=== PATIENT | female | born 1950 | race Caucasian/White ===

== ENCOUNTER 2017-04-19 19:57 | Outpatient (CLI) | payer MEDICARE | END 2017-04-19 19:58 | disposition critical access hospital (66) | LOC: EMS 19:57 | PROVIDERS: ATTEND Surgery | DX: R50.9 Fever, unspecified (principal); R11.0 Nausea | CPT/HCPCS: A0425; A0427 ==

== ENCOUNTER 2017-04-19 20:25 | Emergency (ER) | payer MEDICARE ==
[2017-04-19 20:32] VITALS: BP 136/67
[2017-04-19] MEDS ORDERED: SODIUM CHLORIDE 0.9% 1,000 ML IV ONE (20:41)
[2017-04-19] MEDS ORDERED: ACETAMINOPHEN 500 MG TABLET PO STA (20:41)
[2017-04-19] MEDS ORDERED: ONDANSETRON 4 MG/2 ML VIAL IVP STA (20:41)
[2017-04-19] MEDS ORDERED: ACETAMINOPHEN 500 MG TABLET PO ONE (20:52)
[2017-04-19] MEDS ORDERED: ONDANSETRON 4 MG/2 ML VIAL ONE (20:54)
[2017-04-19 21:14] LABS: BASOPHILS # (AUTO) 0.1 10^3/uL (0.0-0.1); BASOPHILS % (AUTO) 0.4 %; EOSINOPHILS # (AUTO) 0.1 10^3/uL (0.0-0.7); EOSINOPHILS % (AUTO) 0.5 %; HCT - HEMATOCRIT 43.5 % (37.0-47.0); HGB - HEMOGLOBIN 15.2 g/dL (12.0-16.0); LYMPHOCYTES # (AUTO) 0.5 10^3/uL (1.5-3.5); LYMPHOCYTES % (AUTO) 3.6 %; MEAN CORPUSCULAR HEMOGLOBIN 33.9 pg (27.0-31.0); MONOCYTES # (AUTO) 0.8 10^3/uL (0.0-1.0); MONOCYTES % (AUTO) 5.1 %; NEUTROPHILS # (AUTO) 13.5 10^3/uL (1.5-6.6); NEUTROPHILS % (AUTO) 90.4 %; RED BLOOD COUNT 4.49 10^6/uL (4.20-5.40); RED CELL DISTRIBUTION WIDTH 13.8 % (12.0-15.0); UNCORRECTED WHITE BLOOD COUNT 14.9 x10^3/uL; WHITE BLOOD COUNT 14.9 x10^3/uL (4.8-10.8)
[2017-04-19 21:27] LABS: ALBUMIN/GLOBULIN RATIO 1.3 (1.0-2.2); BILIRUBIN,TOTAL 1.1 mg/dL (0.2-1.0); CREATININE 0.7 mg/dL (0.4-1.0); MAGNESIUM 1.7 mg/dL (1.7-2.8); TOTAL PROTEIN 6.6 g/dL (6.7-8.2)
[2017-04-19] MEDS ORDERED: KETOROLAC 60 MG/2 ML VIAL IVP STA (21:27)
[2017-04-19] MEDS ORDERED: NEUTRA-PHOS 250 MG TABLET PO STA (21:29)
[2017-04-19] MEDS ORDERED: KETOROLAC 15 MG/ML VIAL ONE (21:42)
[2017-04-19] MEDS ORDERED: METOCLOPRAMIDE 10 MG/2 ML VIAL IVP STA (21:51)
[2017-04-19] MEDS ORDERED: METOCLOPRAMIDE 10 MG/2 ML VIAL ONE (22:00)
[2017-04-19 22:02] LABS: BILIRUBIN,URINE NEGATIVE (NEGATIVE)
[2017-04-19 22:03] LABS: UA w/ MICROSCOPIC CHARGE YES
--- NOTE | 2017-04-19 22:05 | ED Physician Documentation ---
History of Present Illness - Stated complaint Stated Complaint: FEVER/CHILLS - Chief complaint Chief Complaint: Fever - History obtained from History obtained from: Patient, Family, EMS - History of Present Illness Timing: Today - Additonal information Additional information: Patient is a 66 year old female with multiple co-morbidities who is presenting to the emergency department for body aches. Patient states that yesterday she was out in the sun all day yesterday and today when she woke up she had body aches and felt nauseated and febrile. Patient states that this happened to her once before Review of Systems Constitutional: reports: Fever, Myalgias Eyes: denies: Decreased vision, Photophobia Ears: denies: Ear pain, Drainage/discharge Nose: denies: Congestion Throat: denies: Sore throat Cardiac: denies: Chest pain / pressure, Palpitations Respiratory: denies: Cough, Wheezing GI: reports: Nausea, Vomiting. 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 HEENT: Tonsil/Adenoidectomy - Present Medications Home Medications: Ambulatory Orders Medication Instructions Recorded Confirmed Acyclovir [Zovirax] 04/19/17 Hydrochlorothiazide 04/19/17 Losartan [Cozaar] 04/19/17 Metoprolol Succinate/Hctz 1 tab PO DAILY 04/19/17 04/19/17 [Metoprolol ER-Hctz 50-12.5 mg] Ondansetron Odt [Zofran] 4 mg TL Q6H PRN #14 tablet 04/19/17 - Allergies Allergies/Adverse Reactions: Allergies Allergy/AdvReac Type Severity Reaction Status Date / Time Penicillins Allergy Hives Verified 04/19/17 20:33 Sulfa (Sulfonamide Allergy Emesis Verified 04/19/17 20:33 Antibiotics) morphine AdvReac Anxiety Verified 04/19/17 20:33 - Social History Does the pt smoke?: No Smoking Status: Never smoker Does the pt drink ETOH?: Yes ETOH Use: Wine Does the pt have substance abuse?: No - Immunizations Immunizations are current?: Yes - POLST Patient has POLST: No PD ED PE NORMAL - Vitals Vital signs reviewed: Yes - General General: Alert and oriented X 3, Well developed/nourished - HEENT HEENT: Atraumatic, PERRL, Pharynx benign, Dentition benign - Neck Neck: Supple, no meningeal sign, No JVD - Cardiac Cardiac: RRR, No murmur - Respiratory Respiratory: No respiratory distress - Abdomen Abdomen: Soft, Non tender, Non distended - Derm Derm: Normal color, Warm and dry, No rash - Neuro Neuro: Alert and oriented X 3, 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, No motor deficit, No sensory deficit, Normal speech PD ED PE EXPANDED - HEENT HEENT: Atraumatic, PERRL, Dry mucous membranes - Cardiac Cardiac: Regular Rate, Normal pulses Results - Vitals Vitals: Vital Signs - 24 hr 04/19/17 20:27 Temperature 38.1 C H Heart Rate 104 H Respiratory 18 Rate Blood Pressure 136/67 H O2 Saturation 94 Oxygen O2 Source Room air - Labs Labs: Laboratory Tests 04/19/17 04/19/17 04/19/17 21:07 21:07 21:07 WBC 14.9 H RBC 4.49 Hgb 15.2 Hct 43.5 MCV 97.0 MCH 33.9 H MCHC 35.0 RDW 13.8 Plt Count 195 MPV 8.0 Neut # 13.5 H Lymph # 0.5 L [place] # 0.8 Eos # 0.1 Baso # 0.1 Absolute Nucleated RBC 0.01 Nucleated RBCs 0.0 Sodium 135 Potassium 3.0 L Chloride 99 L Carbon Dioxide 27 Anion Gap 9.0 BUN 16 Creatinine 0.7 Estimated GFR (MDRD) 83 L Glucose 150 H Calcium 9.0 Phosphorus 2.0 L Magnesium 1.7 Total Bilirubin 1.1 H AST 43 H ALT 35 Alkaline Phosphatase 55 Total Creatine Kinase 64 Total Protein 6.6 L Albumin 3.7 Globulin 2.9 Albumin/Globulin Ratio 1.3 Lipase 20 L TSH 1.34 Urine Color Urine Clarity Urine pH Ur Specific [place] Urine Protein Urine Glucose (UA) Urine Ketones Urine Occult Blood Urine Nitrite Urine Bilirubin Urine Urobilinogen Ur Leukocyte Esterase Urine RBC Urine WBC Ur Squamous Epith Cells Urine Bacteria Ur Microscopic Review Urine Culture Comments 04/19/17 21:15 WBC RBC Hgb Hct MCV MCH MCHC RDW Plt Count MPV Neut # Lymph # [place] # Eos # Baso # Absolute Nucleated RBC Nucleated RBCs Sodium Potassium Chloride Carbon Dioxide Anion Gap BUN Creatinine Estimated GFR (MDRD) Glucose Calcium Phosphorus Magnesium Total Bilirubin AST ALT Alkaline Phosphatase Total Creatine Kinase Total Protein Albumin Globulin Albumin/Globulin Ratio Lipase TSH Urine Color YELLOW Urine Clarity HAZY Urine pH 6.0 Ur Specific [place] 1.020 Urine Protein NEGATIVE Urine Glucose (UA) NEGATIVE Urine Ketones NEGATIVE Urine Occult Blood MODERATE H Urine Nitrite NEGATIVE Urine Bilirubin NEGATIVE Urine Urobilinogen 0.2 (NORMAL) Ur Leukocyte Esterase TRACE H Urine RBC 6-10 H Urine WBC 11-25 H Ur Squamous Epith Cells FEW Squamous Urine Bacteria Few Ur Microscopic Review INDICATED Urine Culture Comments INDICATED PD MEDICAL DECISION MAKING - ED course Complexity details: reviewed old records, reviewed results, re-evaluated patient , considered differential, d/w patient, d/w family ED course: Patient was seen and examined at bedside. IV access was gained and labs were drawn. Patient was treated with a NS bolus. Patient was offered tylenol but stated that it did not work for her. Patient was treated with toradol. Patient 's showed some electrolyte abnormalities and her potassium and phosphorus were repleated. Patient stated that she still felt nauseated and had a headache and was treated with reglan and morphine. Patient's other diagnostics were within normal limits. Patient had no other episodes of vomiting in the emergency department. Patient and stated that her symptoms had resolved and would like to go home. patient was discharged in stable condition. Departure - Departure Disposition: 01 Home, Self Care Clinical Impression: Heat exhaustion Condition: Good Instructions: ED Exhaustion Heat Follow-Up: primary,care provider [Other] Prescriptions: Ondansetron Odt [Zofran] 4 mg TL Q6H PRN #14 tablet PRN Reason: Nausea / Vomiting Comments: Your diagnostics today showed mild dehydration and electorlyte abnormalities. It is important that you stay well hydrated with gatorade or other electrolyte solutions. You should try to stay cool and avoid the heat if at all possible over the next few days. You should follow up with your pmd if your symptoms persist over the next week. you may return to the emergency department at any time for new, worsening or uncontrollable symptoms.
[2017-04-19] MEDS ORDERED: MORPHINE 10 MG/ML VIAL IVP STA (22:20)
[2017-04-19 22:21] LABS: UR CULTURE IF IND INDICATED
[2017-04-19] MEDS ORDERED: MORPHINE 10 MG/ML VIAL ONE (22:28)
== END 2017-04-19 23:09 | disposition home or self-care (01) ==
LOC: EDUNIT# → ED 20:25
DX: T67.5XXA Heat exhaustion, unspecified, initial encounter (principal); X32.XXXA Exposure to sunlight, initial encounter; E86.0 Dehydration; E87.8 Other disorders of electrolyte and fluid balance, not elsewhere classified; I10 Essential (primary) hypertension
CPT/HCPCS: 36415; 80053; 81001; 82550; 83690; 83735; 84100; 84443; 85025; 87086; 96374; 96375; 99283; 99284; A9270; 81003

== ENCOUNTER 2017-04-20 12:20 | Outpatient (CLI) | payer MEDICARE | END 2017-04-20 12:21 | disposition EMS.NT | LOC: EMS 12:20 | PROVIDERS: ATTEND Surgery | DX: M79.89 Other specified soft tissue disorders (principal); M79.661 Pain in right lower leg; R50.9 Fever, unspecified; R11.0 Nausea ==

== ENCOUNTER 2017-04-20 13:43 | Inpatient (IN) | payer MEDICARE ==
[2017-04-20] MEDS ORDERED: ACETAMINOPHEN 325 MG TABLET PO STA (14:56)
[2017-04-20] MEDS ORDERED: cefTRIAXone 2 GM in SODIUM CHLORIDE 0.9% MINIBAG 100 ML IV STA (14:56)
[2017-04-20] MEDS ORDERED: SODIUM CHLORIDE 0.9% 1,000 ML IV ONE ×2 (14:56→16:38)
[2017-04-20 15:04] LABS: BASOPHILS % (AUTO) 0.1 %; HCT - HEMATOCRIT 40.3 % (37.0-47.0); HGB - HEMOGLOBIN 14.2 g/dL (12.0-16.0); LYMPHOCYTES # (AUTO) 1.1 10^3/uL (1.5-3.5); LYMPHOCYTES % (AUTO) 6.1 %; MEAN CORPUSCULAR HEMOGLOBIN 33.5 pg (27.0-31.0); MEAN CORPUSCULAR HGB CONC 35.2 g/dL (32.0-36.0); MEAN CORPUSCULAR VOLUME 95.1 fL (81.0-99.0); MEAN PLATELET VOLUME 8.4 fL (7.9-10.8); MONOCYTES # (AUTO) 0.9 10^3/uL (0.0-1.0); MONOCYTES % (AUTO) 5.1 %; NEUTROPHILS # (AUTO) 15.7 10^3/uL (1.5-6.6); NEUTROPHILS % (AUTO) 88.7 %; RED BLOOD COUNT 4.24 10^6/uL (4.20-5.40); RED CELL DISTRIBUTION WIDTH 13.6 % (12.0-15.0); UNCORRECTED WHITE BLOOD COUNT 17.7 x10^3/uL; WHITE BLOOD COUNT 17.7 x10^3/uL (4.8-10.8)
[2017-04-20] MEDS ORDERED: ACETAMINOPHEN 325 MG TABLET PO ONE (15:12)
[2017-04-20 15:14] LABS: BILIRUBIN,TOTAL 1.4 mg/dL (0.2-1.0); CALCIUM 8.6 mg/dL (8.5-10.3); CREATININE 1.1 mg/dL (0.4-1.0); POTASSIUM 2.7 mmol/L (3.5-5.0); TOTAL PROTEIN 6.5 g/dL (6.7-8.2)
[2017-04-20 15:25] LABS: INR 1.4 (0.8-1.2); PT - PROTHROMBIN TIME 15.6 secs (9.9-12.6)
--- NOTE | 2017-04-20 15:45 | ED Physician Documentation ---
History of Present Illness - Stated complaint Stated Complaint: LEGS SWELLING - Chief complaint Chief Complaint: Ext Problem - History obtained from History obtained from: Patient, Family - Additonal information Additional information: This patient is a 66-year-old female who presents with the chief complaint of fevers, chills, generalized malaise, myalgias, and right lower extremity pain and swelling. The patient was seen here yesterday and diagnosed with heat exhaustion was also found to have a urinary tract infection. She was treated and fluid hydrated and ultimately was discharged to home. She returns today for similar but worse symptoms in addition she is complaining about right leg pain and swelling which is increasing in severity. She has no history of venous thromboembolism. She does have a history of kidney stones, sarcoid doses currently not being treated, PSVT, and hypertension. She denies any lower urinary symptoms at present. Review of systems: For pertinent positive and negatives in the review of systems please see the history of present illness, otherwise all other systems have been reviewed and are negative. Dragon disclaimer: Parts of this medical record were created using voice recognition technology. Because of the inherent limitations of this system, occasional same sounding word substitutions do occur and persist despite proofreading. Please read the document for context. 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 - Present Medications Home Medications: Ambulatory Orders Medication Instructions Recorded Confirmed Acyclovir [Zovirax] 04/19/17 Hydrochlorothiazide 04/19/17 Losartan [Cozaar] 04/19/17 Metoprolol Succinate/Hctz 1 tab PO DAILY 04/19/17 04/19/17 [Metoprolol ER-Hctz 50-12.5 mg] Ondansetron Odt [Zofran] 4 mg TL Q6H PRN #14 tablet 04/19/17 - Allergies Allergies/Adverse Reactions: Allergies Allergy/AdvReac Type Severity Reaction Status Date / Time Penicillins Allergy Hives Verified 04/20/17 13:53 Sulfa (Sulfonamide Allergy Emesis Verified 04/20/17 13:53 Antibiotics) morphine AdvReac Anxiety Verified 04/20/17 13:53 - Social History Does the pt smoke?: No Smoking Status: Never smoker Does the pt drink ETOH?: Yes Does the pt have substance abuse?: No - Immunizations Immunizations are current?: Yes - POLST Patient has POLST: No PD ED PE NORMAL - Vitals Vital signs reviewed: Yes - General General: Alert and oriented X 3, No acute distress, Well developed/nourished, Other (Well-appearing large habitus female lying in the bed. She is flushed and bright red in appearance and palpably warm to touch. She is alert and oriented does not seem altered or overtly toxic or ill.) - HEENT HEENT: Atraumatic, PERRL, Pharynx benign, Dentition benign - Neck Neck: Supple, no meningeal sign - Cardiac Cardiac: RRR, No murmur, No gallop, No rub - Respiratory Respiratory: No respiratory distress, Clear bilaterally - Abdomen Abdomen: Normal bowel sounds, Soft, Non tender, Non distended - Derm Derm: Other (Palpably warm to touch, bright red in appearance) - Extremities Extremities: No edema (Increase girth of the right lower extremity, increased warmth tenderness and redness of the right lower extremity below the knee. No obvious evidence of wound or sore. Good arterial pulses are present, capillary refill is great) Results - Vitals Vitals: Vital Signs - 24 hr 04/20/17 04/20/17 04/20/17 13:49 14:22 15:00 Temperature 36.6 C 37.5 C Heart Rate 76 68 Respiratory 14 20 Rate Blood Pressure 94/54 L 104/54 L O2 Saturation 100 94 04/20/17 04/20/17 04/20/17 15:30 16:19 17:00 Temperature 37.8 C H Heart Rate 70 70 62 Respiratory 18 18 18 Rate Blood Pressure 104/56 L 107/52 L 109/45 L O2 Saturation 93 04/20/17 04/20/17 04/20/17 17:20 17:25 17:45 Temperature Heart Rate 65 64 68 Respiratory 20 20 16 Rate Blood Pressure 87/50 L 95/49 L 106/55 L O2 Saturation 94 94 Oxygen O2 Source Room air - Labs Labs: Laboratory Tests 04/20/17 04/20/17 04/20/17 14:10 14:10 14:10 WBC 17.7 H RBC 4.24 Hgb 14.2 Hct 40.3 MCV 95.1 MCH 33.5 H MCHC 35.2 RDW 13.6 Plt Count 177 MPV 8.4 Neut # 15.7 H Lymph # 1.1 L [place] # 0.9 Eos # 0.0 Baso # 0.0 Absolute Nucleated RBC 0.00 Nucleated RBCs 0.0 PT 15.6 H INR 1.4 H Sodium 133 L Potassium 2.7 L Chloride 97 L Carbon Dioxide 25 Anion Gap 11.0 BUN 23 H Creatinine 1.1 H Estimated GFR (MDRD) 50 L Glucose 177 H Lactic Acid Calcium 8.6 Total Bilirubin 1.4 H AST 38 ALT 33 Alkaline Phosphatase 47 Total Protein 6.5 L Albumin 3.3 Globulin 3.2 Albumin/Globulin Ratio 1.0 Lipase 26 04/20/17 14:10 WBC RBC Hgb Hct MCV MCH MCHC RDW Plt Count MPV Neut # Lymph # [place] # Eos # Baso # Absolute Nucleated RBC Nucleated RBCs PT INR Sodium Potassium Chloride Carbon Dioxide Anion Gap BUN Creatinine Estimated GFR (MDRD) Glucose Lactic Acid 2.7 H Calcium Total Bilirubin AST ALT Alkaline Phosphatase Total Protein Albumin Globulin Albumin/Globulin Ratio Lipase PD MEDICAL DECISION MAKING - ED course Complexity details: reviewed old records, reviewed results, re-evaluated patient , d/w patient, 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 She was seen yesterday and diagnosed with heat exhaustion however symptoms worsened and the swelling and redness of the right leg really started up coming apparent today. On examination the patient was noted to be bright red in appearance, warm to touch, with a swollen red erythematous right leg. An IV line was started she is given IV fluid serum lactate was checked and found to be mildly elevated at 2.72. 2 blood cultures were obtained. Chest x-ray shows no acute intrathoracic disease. Blood work demonstrates a white count of 17,000 with elevation of the serum lactate at 2.7 consistent with evidence of endorgan dysfunction. Based on serious criteria and elevated lactate she meets criteria for severe sepsis. Ultrasound was done of the right lower extremity is negative for venous thromboembolism. Her urine yesterday was reviewed and it appears to be infected. I suspect her focals of infection is more likely due to her right lower extremity which is obviously infected. The portal of entry appears to be due to tinea pedis. Disposition: Admission Clinical impression: 1. Severe sepsis by criteria 2. Right lower extremity cellulitis 3. Possible mild urinary tract infection Departure - Departure Disposition: ED Place in Observation
[2017-04-20] MEDS ORDERED: HYDROmorphone 1 MG/ML SYRINGE IVP STA (15:47)
--- NOTE | 2017-04-20 15:55 | XRAY Preliminary Report ---
Exam: XR Chest 1 View IMPRESSION: Unremarkable chest for age, body size and inspiratory effort. No pneumonia or other demon strated cause for fever. [facility] SITE ID: [id number]
[2017-04-20] MEDS ORDERED: HYDROmorphone 1 MG/ML SYRINGE ONE (15:56)
[2017-04-20] MEDS ORDERED: SODIUM CHLORIDE FLUSH 0.9% 10 ML SYRINGE IVP ONE (15:57)
--- NOTE | 2017-04-20 15:57 | XRAY Report ---
EXAM: CHEST RADIOGRAPHY, PORTABLE ONE VIEW EXAM DATE: 04/20/2017 03:17 PM. CLINICAL HISTORY: 66-year-old female with fever. COMPARISON: Two-view chest 09/14/2012. TECHNIQUE: 1516 hrs. AP portable view. FINDINGS: Lungs/Pleura: Suboptimal inspiratory effort with minor hypoventilatory changes. No infiltrates. No pl eural effusion. No pneumothorax. Mediastinum: Heart size normal considering body size and inspiratory effort. No pulmonary vascular co ngestion or adenopathy. Other: Trachea is midline. Osseous structures are unremarkable. IMPRESSION: Unremarkable chest for age, body size and inspiratory effort. No pneumonia or other demon strated cause for fever. [facility] Referring Provider Line: [phone] SITE ID: [id number]
--- NOTE | 2017-04-20 16:02 | Ultrasound Preliminary Report ---
Exam: US Duplex Ext Veins Right IMPRESSION: No evidence for deep venous thrombosis. [facility] SITE ID: [id number]
--- NOTE | 2017-04-20 16:05 | Ultrasound Report ---
EXAM: RIGHT LOWER EXTREMITY VENOUS ULTRASOUND EXAM DATE: 04/20/2017 03:48 PM. CLINICAL HISTORY: RIGHT LEG PAIN AND SWELLING. COMPARISON: None. TECHNIQUE: Real-time sonographic vascular imaging was performed by the field sampling technician through the lower extremity utilizing both color-flow and Doppler spectral analysis. Multiple equal opportunity representative static baltazar ges were saved for review. FINDINGS: Common Femoral Vein (CFV): Limited visualization due to obesity. CFV-GSV Junction: Normal. Profunda Femoral Vein (PFV): Normal. Femoral Vein (FV) Prox: Normal. Femoral Vein (FV) Mid: Normal. Femoral Vein (FV) Dist: Normal. Popliteal Vein: Normal. Posterior Tibial Veins: Normal. Peroneal Veins: Normal. Contralateral Side CFV: Limited visualization due to obesity. Other: None. IMPRESSION: No evidence for deep venous thrombosis. [facility] Referring Provider Line: [phone] SITE ID: [id number]
[2017-04-20] MEDS ORDERED: cefTRIAXone 2 GM VIAL ONE (16:10)
[2017-04-20] MEDS ORDERED: CLINDAMYCIN 900 MG/50 ML 50 ML IV ONE ×2 (17:10→17:17)
[2017-04-20] MEDS ORDERED: oxyCODONE 5 MG TABLET PO PRN ×4 (17:55→18:40)
[2017-04-20] MEDS ORDERED: SODIUM CHLORIDE FLUSH 0.9% 10 ML SYRINGE IVP PRN ×2 (17:55→18:40)
[2017-04-20] MEDS ORDERED: VANCOMYCIN INJ 1 GM in SODIUM CHLORIDE 0.9% 250 ML IV STA ×2 (17:55→18:40)
[2017-04-20] MEDS ORDERED: ONDANSETRON 4 MG/2 ML VIAL IVP PRN ×2 (17:55→18:40)
[2017-04-20] MEDS ORDERED: CLINDAMYCIN 900 MG/50 ML 50 ML IV SCH (18:00)
[2017-04-20] MEDS ORDERED: NS W/20 MEQ KCL 1,000 ML IV SCH (18:00)
[2017-04-20 18:23] LABS: BILIRUBIN,URINE NEGATIVE (NEGATIVE)
[2017-04-20 18:25] LABS: UA w/ MICROSCOPIC CHARGE YES
[2017-04-20 18:55] LABS: WBC,URINE >25 /HPF (0-5)
[2017-04-20 18:56] LABS: UR CULTURE IF IND INDICATED
[2017-04-20] MEDS ORDERED: VANCOMYCIN PER PHARMACY 1 GM in SODIUM CHLORIDE 0.9% 250 ML IV SCH (19:00)
[2017-04-20] MEDS: NS W/20 MEQ KCL 1,000 ML IV SCH (19:10)
[2017-04-20] MEDS: POTASSIUM CHLORIDE 20 MEQ TABLET PO SCH ×2 (19:10→22:14)
[2017-04-20] MEDS ORDERED: WATER FOR INJECTION,STERILE 10 ML ONE (19:35)
[2017-04-20] MEDS ORDERED: VANCOMYCIN INJ 1.5 GM in SODIUM CHLORIDE 0.9% 500 ML IV SCH (20:00)
--- NOTE | 2017-04-20 20:36 | HISTORY & PHYSICAL EXAMINATION ---
DATE OF ADMISSION: 04/20/2017 PRIMARY CARE PHYSICIAN: Out of the area. CHIEF COMPLAINT: Fever and leg swelling. IDENTIFYING INFORMATION: The patient is a 66-year-old female, who appears cogent, consistent, and tho rough. Her is also present and gives additional information. There is also additional informa tion in the hand-off from Dr. Barba, the emergency department physician, and personal review of the past medical records, which are summarized subsequently. All of this, including her interview and examination, were used in the evaluation of this patient and the preparation of this document. HISTORY OF PRESENT ILLNESS: The patient was working outside for too long. She was feeling like she merchant s felt before when she had heat exhaustion about 20 years ago, but she also had other symptoms which she called neuralgia and pain in the extremities. She was seen in the emergency department last night , and she was given 2 L of oxygen. The patient also had a urinary tract infection and a culture which is pending, but there were no antibiotics prescribed. The patient had been ordered a white count at that time, which was 14.9. The patient returned today and had a fever at home to 103 by EMS. She had more symptoms, and the right leg was swollen and turned red. Very painful as well. REVIEW OF SYSTEMS: The patient has had a fever and pain. No sore throat. No cough. She has had no yoel st pain or palpitations. She has a past history of a racing heart, but she did not have this at this time. She has had no abdominal pain. She had nausea and vomiting, though. No frequency, urgency, or d ysuria. The rest of the complete review of systems are negative as queried. PAST MEDICAL HISTORY: Remarkable for hypertension, dysthymic disorder, sarcoidosis, and kidney stones . PAST SURGICAL HISTORY: , hysterectomy, T and A, and ventral hernia. The patient had an attem pt at ultrasonic destruction of kidney stones, but it did not work except to reduce the blockage obst ructing the urine flow in her kidney. ALLERGIES: 1. SULFA. 2. PENICILLIN. 3. MORPHINE. MEDICATIONS: 1. Zovirax. 2. Losartan. 3. Metoprolol/hydrochlorothiazide. 4. Ondansetron. Dosing and frequency are not verified. PERSONAL AND SOCIAL HISTORY: The patient was born in [place] and raised there. After high school, she went to [employer] in the first class at [employer] of this college within a colle ge. 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 The patient was never a smoker. She drinks alcohol socially. The patient is and lives with her . FAMILY HISTORY: Negative for diabetes. Negative for heart disease. Negative for cancer. PHYSICAL EXAMINATION: GENERAL: Well-developed, well-nourished female, morbidly obese. Appears uncomfortable, but in no acut e distress. VITAL SIGNS: Temperature 36.6, 76, 14, 94/54, saturation 100%. EYES: EOM within normal limits. PERRL. Nonicteric. MOUTH AND THROAT: Somewhat dry mucous membranes. Otherwise, no pathology of mouth or pharynx. NECK: No lymphadenopathy. No thyromegaly. CHEST WALL: Nontender. Symmetric. No breast exam done. HEART: Sinus rhythm. No murmurs, rubs, or clicks heard. LUNGS: Clear. Good air movement in all quadrants. ABDOMEN: Massively thick abdominal wall. Nontender. No further exam. PELVIC/RECTAL: Exam not done. EXTREMITIES: Shows a right leg which is swollen, tense, and tender up the calf. Ultrasound previously done today is negative for DVT. The patient's left leg has no redness, pain, or swelling. Pulse in t he posterior tibial bilaterally. SKIN: The erythematous rash is greatest around the ankle, with some on the upper calf. She says she h as tenderness all the way up into the inside of the thigh. NEUROLOGICAL: Cognitively intact. Cranial nerves intact. LABORATORY DATA: White count 17.7, up from 14.9 and 14.4. Platelets 177. INR is 1.4. Sodium 133, pota ssium 2.7. The patient's chloride is 97, CO2 25, BUN 23, and creatinine is 1.1. The patient's glucose is 177 and calcium 8.6. Normal liver enzymes, albumin is 3.3. The patient's lactic acid is 2.7. The patient's urine from today is pending. Her urinalysis is pending. The patient's urinalysis from showed the infected urine as noted above. SUMMARY: The patient is a 66-year-old female who said she worked out in the sun yesterday for too saji g. She got heat exhaustion and was diagnosed with the same and a urinary tract infection yesterday. S he did not get antibiotics. She got worse systemic symptoms. She has a past medical history of morbid obesity, intermittent tachycardia of undetermined type, possibly paroxysmal atrial fibrillation, and hypertension. She was seen in the emergency department today and found to have a urinary tract infec tion, cellulitis, and sepsis. She is admitted for antibiotics, as well as potassium replacement and I V fluids. DIAGNOSES: 1. Sepsis. 2. Cellulitis of right leg. 3. Urinary tract infection. 4. Hypokalemia. 5. Morbid obesity. 6. Hypertension. 7. Dysthymic disorder. DISCUSSION/DECISION-MAKING: The patient's assessment is documented by fever as documented by EMS, kristel vated lactate, and elevated white count from 2 sources of infection. 1. Sepsis. She will get Rocephin for the presumptive urinary tract infection and vancomycin IV for th e cellulitis. 2. Urinary tract infection. 3. Cellulitis. 4. The patient's hypokalemia will be treated with potassium replacement, IV and oral. The patient raleigh l have monitoring of this as well. 5. The patient's morbid obesity will not be addressed. 6. The patient's hypertension will be monitored. Presently, it is low, and no blood pressure medicine s will be administered. 7. There is no treatment needed for her dysthymic disorder at this time. HOSPITAL ISSUES: 1. CODE STATUS: FULL CODE. The patient was not engaged in a discussion given the urgency of the admis jose. 2. The patient's VTE prophylaxis will be with Lovenox subcu. Would suggest if she still has a painful leg despite antibiotics, repeat the ultrasound in 3 days. 3. Diet will be a regular diet. 4. Activity will be as tolerated. Assistance initially, given that she has sepsis and feels weak. 5. The patient's tubes and lines will be an IV peripherally only at this time. 6. Hospital status: Given the sepsis, UTI, and cellulitis, the patient will be admitted as an inpatie nt and will need at least 2 nights of treatment for that. The patient's length of stay is estimated a t 3 nights. 7. Disposition: Expected to be to home after she is improved. JOB #: [id number] EXT JOB #:[id number]
[2017-04-20] MEDS: SODIUM CHLORIDE FLUSH 0.9% 10 ML SYRINGE IVP SCH (21:17)
[2017-04-20] MEDS ORDERED: ZOLPIDEM 5 MG TABLET PO PRN (21:18)
[2017-04-20] MEDS ORDERED: SODIUM CHLORIDE FLUSH 0.9% 10 ML SYRINGE IVP SCH (22:00)
[2017-04-21] MEDS ORDERED: TEMAZEPAM 15 MG CAPSULE PO PRN (00:18)
[2017-04-21] MEDS: IBUPROFEN 600 MG TABLET PO SCH ×4 (00:34→17:54)
[2017-04-21] MEDS: SODIUM CHLORIDE FLUSH 0.9% 10 ML SYRINGE IVP SCH ×3 (04:41→19:40)
[2017-04-21 05:39] LABS: BASOPHILS % (AUTO) 0.2 %; EOSINOPHILS % (AUTO) 0.1 %; HCT - HEMATOCRIT 37.4 % (37.0-47.0); HGB - HEMOGLOBIN 12.9 g/dL (12.0-16.0); LYMPHOCYTES # (AUTO) 1.2 10^3/uL (1.5-3.5); LYMPHOCYTES % (AUTO) 8.8 %; MEAN CORPUSCULAR HEMOGLOBIN 33.5 pg (27.0-31.0); MEAN CORPUSCULAR HGB CONC 34.6 g/dL (32.0-36.0); MEAN CORPUSCULAR VOLUME 96.7 fL (81.0-99.0); MEAN PLATELET VOLUME 7.7 fL (7.9-10.8); MONOCYTES # (AUTO) 0.8 10^3/uL (0.0-1.0); MONOCYTES % (AUTO) 5.4 %; NEUTROPHILS # (AUTO) 11.8 10^3/uL (1.5-6.6); NEUTROPHILS % (AUTO) 85.5 %; RED BLOOD COUNT 3.86 10^6/uL (4.20-5.40); RED CELL DISTRIBUTION WIDTH 13.7 % (12.0-15.0); UNCORRECTED WHITE BLOOD COUNT 13.8 x10^3/uL; WHITE BLOOD COUNT 13.8 x10^3/uL (4.8-10.8)
[2017-04-21 05:49] LABS: ALBUMIN/GLOBULIN RATIO 1.1 (1.0-2.2); CALCIUM 7.6 mg/dL (8.5-10.3); CREATININE 0.9 mg/dL (0.4-1.0); MAGNESIUM 1.6 mg/dL (1.7-2.8); PHOSPHORUS 1.8 mg/dL (2.5-4.6); POTASSIUM 3.2 mmol/L (3.5-5.0); TOTAL PROTEIN 5.6 g/dL (6.7-8.2)
[2017-04-21] MEDS: NS W/20 MEQ KCL 1,000 ML IV SCH ×2 (05:55→17:58)
[2017-04-21] MEDS: POLYETHYLENE GLYCOL 3350 17 GM PACKET PO SCH (07:42)
[2017-04-21] MEDS ORDERED: POLYETHYLENE GLYCOL 3350 17 GM PACKET PO SCH (09:00)
[2017-04-21] MEDS ORDERED: cefTRIAXone 2 GM VIAL IVP SCH ×2 (09:00)
[2017-04-21] MEDS ORDERED: ENOXAPARIN 40 MG/0.4 ML SYRINGE SUBQ SCH (09:00)
[2017-04-21] MEDS: POTASSIUM CHLORIDE 20 MEQ TABLET PO STA ×2 (10:17→10:21)
[2017-04-21] MEDS: VANCOMYCIN INJ 1 GM in SODIUM CHLORIDE 0.9% 250 ML IV SCH ×2 (10:17→20:46)
[2017-04-21] MEDS: ENOXAPARIN 40 MG/0.4 ML SYRINGE SUBQ SCH (10:17)
[2017-04-21] MEDS: MAGNESIUM OXIDE 400 MG TABLET PO SCH (10:17)
[2017-04-21] MEDS: POTASSIUM CHLORIDE 20 MEQ TABLET PO SCH ×4 (10:21→20:45)
--- NOTE | 2017-04-21 11:27 | PROVIDER PROGRESS NOTE ---
Assessment/Plan - Problem List (1) Sepsis Assessment/Plan: Patient presented with fever of 103 per EMS records, JG, elevated lactic acid, leukocytosis of 17.7 and source of infection with UTI and right lower extremity cellulitis Patient started on IV Vanco and ceftriaxone yesterday WBC down to 13.8, lactic acid resolved and jg resolved Resolving Urine cx negative Blood cx pending (2) UTI (urinary tract infection) Qualifiers: Urinary tract infection type: acute cystitis Assessment/Plan: Patient presented with sepsis and had a positive UA with positive LE, occult blood and >25 WBCs Urine culture negative but given sepsis will continue treatment for UTI On Ceftriaxone day 2 Blood cx pending Treat with IV abx for 1 more day WBC improving No fevers Improving (3) Cellulitis Qualifiers: Site of cellulitis: extremity Site of cellulitis of extremity: lower extremity Laterality: left Qualified Code(s): L03.116 - Cellulitis of left lower limb Assessment/Plan: Patient presented with sepsis Right lower extremity with redness, warmth, tenderness consistent with cellulitis On vancomycin and ceftriaxone day 2 Appears to be stable LE still red, swollen, warm and tender WBC improved, lactic acid resolved and no fevers Improving needs 1 more day of IV abx Blood cx pending (4) Acute kidney injury Assessment/Plan: Likely pre-renal secondary to sepsis Given IV fluids Resolving with iVfs Monitor finger lift operator daily Avoid nephrotoxic agents (5) Hypokalemia Assessment/Plan: Replace K Monitor K daily (6) Hypophosphatemia Assessment/Plan: Replace Phos Monitor phos daily (7) Hypomagnesemia Assessment/Plan: Replace mg Monitor Mg daily - Current Meds Current Meds: Current Medications Generic Name Dose Route Start Last Admin Trade Name Freq PRN Reason Stop Dose Admin Enoxaparin Sodium 40 mg 04/21/17 09:00 04/21/17 10:17 Lovenox SUBQ 40 mg DAILY GENA Administration Potassium Chloride/Sodium Chloride 1,000 mls @ 100 mls/hr 04/20/17 19:00 05:55 Normal Saline 0.9% W/20 Meq Kcl IV 100 mls/hr .Q10H GENA Administration Vancomycin HCl 1 gm/ Sodium 250 mls @ 250 mls/hr 04/21/17 08:00 04/21/17 10:17 Chloride IV 250 mls/hr Q12H GENA Administration Ibuprofen 600 mg 04/21/17 01:00 04/21/17 05:55 Motrin PO 600 mg Q6HR GENA Administration Magnesium Oxide 400 mg 04/21/17 09:00 04/21/17 10:17 Mag Ox PO 400 mg DAILYWM GENA Administration Polyethylene Glycol 17 gm 04/21/17 09:00 04/21/17 07:42 Miralax PO Not Given DAILY GENA Potassium Chloride 20 meq 04/20/17 19:00 04/21/17 10:21 K-Dur PO 20 meq QID GENA Administration Sodium Chloride 10 ml 04/20/17 22:00 04/21/17 04:41 Normal Saline Flush 0.9% IVP Not Given Q8HR GENA Temazepam 15 mg 04/21/17 00:18 04/21/17 00:34 Restoril PO 15 mg QPM PRN Administration Insomnia - Lab Result Lab results reviewed: Yes Fish Bone Diagrams: 04/21/17 05:28 04/21/17 05:28 - EKG Results EKG Interpreted Independently: Yes - Diagnostic Imaging Results Diagnostic Imaging Results: Final report reviewed - Additional Planning Condition/Complexity: Stable My Orders: My Active Orders 04/21/17 09:00 Magnesium Oxide [Mag Ox] 400 mg PO DAILYWM 04/21/17 12:00 Neutra-Phos [K-Phos Neutral] 250 mg PO TIDWM Plan Discussed with:: Patient Time Spent: 31-60 minutes Subjective - Subjective Patient Reports: Feeling Better (She states that she does feel better but still not back to her normal self. She denies any fevers or chills overnight. Continues to have redness of her right lower extremity. Denies any shortness of breath, cough or chest pain.) Nursing Reports: No Complaints Objective Vital Signs: Vital Signs - 24 hr 04/20/17 04/20/17 04/20/17 18:00 18:55 19:00 Temperature 36.6 C Heart Rate 66 Heart Rate [ 69 Brachial] Heart Rate [ Radial] Respiratory 16 18 Rate Blood Pressure 98/43 L Blood Pressure 78/45 L 92/48 L [Left Radial artery] O2 Saturation 96 04/20/17 04/21/17 04/21/17 20:17 00:29 04:27 Temperature 37.0 C 37.4 C 36.7 C Heart Rate Heart Rate [ Brachial] Heart Rate [ 71 80 73 Radial] Respiratory 20 16 18 Rate Blood Pressure Blood Pressure 98/50 L 126/62 99/47 L [Left Radial artery] O2 Saturation 96 97 92 04/21/17 07:41 Temperature 36.8 C Heart Rate Heart Rate [ Brachial] Heart Rate [ 73 Radial] Respiratory 16 Rate Blood Pressure Blood Pressure 99/43 L [Left Radial artery] O2 Saturation 95 Oxygen O2 Source Room air I&O (Last 24 Hrs): Intake and Output Totals x24h 04/19/17 04/20/17 04/21/17 23:59 23:59 23:59 Intake Total 710 698 Output Total 250 250 Balance 460 448 General: Alert, Oriented x3, Cooperative, No acute distress HEENT: Atraumatic, PERRLA, EOMI, Other (Dry mucus membranes) Neck: Supple, No JVD, No thyromegaly, +2 carotid pulse wo bruit, No LAD Lymphatic: no adenopathy Neuro: Alert, Non Focal, CN 2-12 Grossly Intact, Oriented Times 3 Cardiovascular: Regular rate, Normal S1, Normal S2, No murmurs Respiratory: Chest non-tender, No respiratory distress, Breath sounds nml Abdomen: Normal bowel sounds, Soft, No tenderness, No hepatospenomegaly Extremities: No clubbing, No cyanosis, Normal pulses, Other (Right lower extremity red, swollen, warm and tender.) Skin: No rashes Comments/Notes: Right lower ext as above - Results Results: Laboratory Results WBC 13.8 x10^3/uL (4.8-10.8) H 04/21/17 05:28 RBC 3.86 10^6/uL (4.20-5.40) L 04/21/17 05:28 Hgb 12.9 g/dL (12.0-16.0) 04/21/17 05:28 Hct 37.4 % (37.0-47.0) 04/21/17 05:28 MCV 96.7 fL (81.0-99.0) 04/21/17 05:28 MCH 33.5 pg (27.0-31.0) H 04/21/17 05:28 MCHC 34.6 g/dL (32.0-36.0) 04/21/17 05:28 RDW 13.7 % (12.0-15.0) 04/21/17 05:28 Plt Count 136 10^3/uL (130-450) 04/21/17 05:28 MPV 7.7 fL (7.9-10.8) L 04/21/17 05:28 Neut # 11.8 10^3/uL (1.5-6.6) H 04/21/17 05:28 Lymph # 1.2 10^3/uL (1.5-3.5) L 04/21/17 05:28 [place] # 0.8 10^3/uL (0.0-1.0) 04/21/17 05:28 Eos # 0.0 10^3/uL (0.0-0.7) 04/21/17 05:28 Baso # 0.0 10^3/uL (0.0-0.1) 04/21/17 05:28 Absolute Nucleated RBC 0.00 x10^3/uL 04/21/17 05:28 Nucleated RBCs 0.0 /100WBC 04/21/17 05:28 PT 15.6 secs (9.9-12.6) H 04/20/17 14:10 INR 1.4 (0.8-1.2) H 04/20/17 14:10 Sodium 137 mmol/L (135-145) 04/21/17 05:28 Potassium 3.2 mmol/L (3.5-5.0) L 04/21/17 05:28 Chloride 104 mmol/L (101-111) 04/21/17 05:28 Carbon Dioxide 26 mmol/L (21-32) 04/21/17 05:28 Anion Gap 7.0 (6-13) 04/21/17 05:28 BUN 18 mg/dL (6-20) 04/21/17 05:28 Creatinine 0.9 mg/dL (0.4-1.0) 04/21/17 05:28 Estimated GFR (MDRD) 62 (>89) L 04/21/17 05:28 Glucose 134 mg/dL (70-100) H 04/21/17 05:28 Lactic Acid 1.4 mmol/L (0.5-2.2) 04/21/17 05:28 Calcium 7.6 mg/dL (8.5-10.3) L 04/21/17 05:28 Phosphorus 1.8 mg/dL (2.5-4.6) L 04/21/17 05:28 Magnesium 1.6 mg/dL (1.7-2.8) L 04/21/17 05:28 Total Bilirubin 1.0 mg/dL (0.2-1.0) 04/21/17 05:28 AST 39 IU/L (10-42) 04/21/17 05:28 ALT 36 IU/L (10-60) 04/21/17 05:28 Alkaline Phosphatase 44 IU/L (42-121) 04/21/17 05:28 Total Creatine Kinase 240 IU/L (22-269) 04/21/17 05:28 Total Protein 5.6 g/dL (6.7-8.2) L 04/21/17 05:28 Albumin 2.9 g/dL (3.2-5.5) L 04/21/17 05:28 Globulin 2.7 g/dL (2.1-4.2) 04/21/17 05:28 Albumin/Globulin Ratio 1.1 (1.0-2.2) 04/21/17 05:28 Lipase 26 U/L (22-51) 04/20/17 14:10 Urine Color DARK YELLOW 04/20/17 18:05 Urine Clarity CLEAR (CLEAR) 04/20/17 18:05 Urine pH 6.0 PH (5.0-7.5) 04/20/17 18:05 Ur Specific [place] 1.025 (1.002-1.030) 04/20/17 18:05 Urine Protein NEGATIVE mg/dL (NEGATIVE) 04/20/17 18:05 Urine Glucose (UA) NEGATIVE mg/dL (NEGATIVE) 04/20/17 18:05 Urine Ketones NEGATIVE mg/dL (NEGATIVE) 04/20/17 18:05 Urine Occult Blood SMALL (NEGATIVE) H 04/20/17 18:05 Urine Nitrite NEGATIVE (NEGATIVE) 04/20/17 18:05 Urine Bilirubin NEGATIVE (NEGATIVE) 04/20/17 18:05 Urine Urobilinogen 0.2 (NORMAL) E.U./dL (NORMAL) 04/20/17 18:05 Ur Leukocyte Esterase TRACE (NEGATIVE) H 04/20/17 18:05 Urine RBC 0-5 /HPF (0-5) 04/20/17 18:05 Urine WBC >25 /HPF (0-5) H 04/20/17 18:05 Ur Squamous Epith Cells FEW Squamous (<= Few) 04/20/17 18:05 Urine Bacteria None Seen /HPF (None Seen) 04/20/17 18:05 Urine Casts 11-25Course Granular /LPF3-5 Hyaline Casts /LPF 04/20/17 18:05 Urine Casts 11-25Course Granular /LPF3-5 Hyaline Casts /LPF 04/20/17 18:05 Urine Mucus Few Strands 04/20/17 18:05 Ur Microscopic Review INDICATED 04/20/17 18:05 Urine Culture Comments INDICATED 04/20/17 18:05
[2017-04-21] MEDS: NEUTRA-PHOS 250 MG TABLET PO SCH ×2 (13:06→16:31)
[2017-04-21] MEDS ORDERED: diphenhydrAMINE 25 MG CAPSULE PO PRN (14:28)
[2017-04-21] MEDS ORDERED: PROCHLORPERAZINE 10 MG/2 ML VIAL IVP PRN (14:28)
[2017-04-21] MEDS: cefTRIAXone 2 GM in SODIUM CHLORIDE 0.9% MINIBAG 100 ML IV SCH (15:06)
[2017-04-21] MEDS: traMADol 50 MG TABLET PO PRN ×2 (15:07→20:46)
[2017-04-22] MEDS: IBUPROFEN 600 MG TABLET PO SCH ×4 (00:27→21:35)
[2017-04-22] MEDS: NS W/20 MEQ KCL 1,000 ML IV SCH ×3 (01:58→17:52)
[2017-04-22] MEDS ORDERED: methylPREDNISolone SUCCINATE 125 MG/2 ML VIAL IVP ONE (02:20)
[2017-04-22] MEDS ORDERED: methylPREDNISolone SUCCINATE 125 MG/2 ML VIAL ONE (02:30)
[2017-04-22] MEDS: SODIUM CHLORIDE FLUSH 0.9% 10 ML SYRINGE IVP SCH ×3 (05:09→21:41)
[2017-04-22 06:02] LABS: BASOPHILS % (AUTO) 0.1 %; EOSINOPHILS # (AUTO) 0.1 10^3/uL (0.0-0.7); EOSINOPHILS % (AUTO) 0.5 %; HCT - HEMATOCRIT 38.3 % (37.0-47.0); HGB - HEMOGLOBIN 13.4 g/dL (12.0-16.0); LYMPHOCYTES # (AUTO) 0.8 10^3/uL (1.5-3.5); LYMPHOCYTES % (AUTO) 7.5 %; MEAN CORPUSCULAR HEMOGLOBIN 33.9 pg (27.0-31.0); MEAN CORPUSCULAR HGB CONC 34.9 g/dL (32.0-36.0); MEAN CORPUSCULAR VOLUME 97.1 fL (81.0-99.0); MEAN PLATELET VOLUME 8.7 fL (7.9-10.8); MONOCYTES # (AUTO) 0.4 10^3/uL (0.0-1.0); MONOCYTES % (AUTO) 3.7 %; NEUTROPHILS % (AUTO) 88.2 %; RED BLOOD COUNT 3.95 10^6/uL (4.20-5.40); UNCORRECTED WHITE BLOOD COUNT 10.3 x10^3/uL; WHITE BLOOD COUNT 10.3 x10^3/uL (4.8-10.8)
[2017-04-22 06:05] LABS: ALBUMIN/GLOBULIN RATIO 0.9 (1.0-2.2); BILIRUBIN,TOTAL 0.7 mg/dL (0.2-1.0); CALCIUM 8.7 mg/dL (8.5-10.3); CREATININE 0.6 mg/dL (0.4-1.0); MAGNESIUM 1.9 mg/dL (1.7-2.8); PHOSPHORUS 1.1 mg/dL (2.5-4.6); POTASSIUM 4.4 mmol/L (3.5-5.0); TOTAL PROTEIN 6.2 g/dL (6.7-8.2)
[2017-04-22] MEDS: VANCOMYCIN INJ 1 GM in SODIUM CHLORIDE 0.9% 250 ML IV SCH ×2 (08:58→21:40)
[2017-04-22] MEDS: POLYETHYLENE GLYCOL 3350 17 GM PACKET PO SCH (08:58)
[2017-04-22] MEDS: MAGNESIUM OXIDE 400 MG TABLET PO SCH (08:59)
[2017-04-22] MEDS: ENOXAPARIN 40 MG/0.4 ML SYRINGE SUBQ SCH (08:59)
[2017-04-22] MEDS: POTASSIUM CHLORIDE 20 MEQ TABLET PO SCH ×4 (08:59→21:37)
[2017-04-22] MEDS: NEUTRA-PHOS 250 MG TABLET PO SCH ×3 (08:59→16:54)
[2017-04-22] MEDS: HYDROCHLOROTHIAZIDE 25MG PO SCH (11:02)
[2017-04-22] MEDS: COZAAR 50 MG PO SCH (11:02)
[2017-04-22] MEDS: VALACYCLOVIR 500 MG PO SCH (11:02)
--- NOTE | 2017-04-22 13:40 | PROVIDER PROGRESS NOTE ---
Assessment/Plan - Problem List (1) Sepsis Assessment/Plan: Patient presented with fever of 103 per EMS records, JG, elevated lactic acid, leukocytosis of 17.7 and source of infection with UTI and right lower extremity cellulitis Patient started on IV Vanco and ceftriaxone on day 3 WBC down to 10.3, lactic acid resolved and jg resolved Urine cx negative Blood cx negative Resolved (2) UTI (urinary tract infection) Qualifiers: Urinary tract infection type: acute cystitis Assessment/Plan: Patient presented with sepsis and had a positive UA with positive LE, occult blood and >25 WBCs Urine culture negative but given sepsis will continue treatment for UTI On Ceftriaxone day 3 Blood cx negative Will stop ceftriaxone after today WBC improving No fevers Improving (3) Cellulitis Qualifiers: Site of cellulitis: extremity Site of cellulitis of extremity: lower extremity Laterality: left Qualified Code(s): L03.116 - Cellulitis of left lower limb Assessment/Plan: Patient presented with sepsis Right lower extremity with redness, warmth, tenderness consistent with cellulitis On vancomycin and ceftriaxone day 3 Appears to be stable LE still red, swollen, warm and tender WBC improved, lactic acid resolved and no fevers Improving but still very tender RLE with continued swelling Blood cx negative Needs 1 more day of IV abx as she is still having a lot of pain and swelling (4) Acute kidney injury Assessment/Plan: Likely pre-renal secondary to sepsis Given IV fluids Avoid nephrotoxic agents Monitor claims examiner daily Resolved (5) Hypokalemia Assessment/Plan: Resolved (6) Hypophosphatemia Assessment/Plan: Replace Phos Monitor phos daily (7) Hypomagnesemia Assessment/Plan: Resolved - Current Meds Current Meds: Current Medications Generic Name Dose Route Start Last Admin Trade Name Freq PRN Reason Stop Dose Admin Enoxaparin Sodium 40 mg 04/21/17 09:00 04/22/17 08:59 Lovenox SUBQ 40 mg DAILY GENA Administration Potassium Chloride/Sodium Chloride 1,000 mls @ 100 mls/hr 04/20/17 19:00 04:33 Normal Saline 0.9% W/20 Meq Kcl IV 100 mls/hr .Q10H GENA Administration Ceftriaxone Sodium 2 gm/ 100 mls @ 200 mls/hr 04/21/17 15:00 04/21/17 15:06 Sodium Chloride IV 200 mls/hr Q24H GENA Administration Vancomycin HCl 1 gm/ Sodium 250 mls @ 250 mls/hr 04/21/17 08:00 04/22/17 08:58 Chloride IV 250 mls/hr Q12H GENA Administration Ibuprofen 600 mg 04/21/17 01:00 04/22/17 13:04 Motrin PO 600 mg Q6HR GENA Administration Magnesium Oxide 400 mg 04/21/17 09:00 04/22/17 08:59 Mag Ox PO 400 mg DAILYWM GENA Administration Ondansetron HCl 4 mg 04/20/17 18:40 04/21/17 14:08 Zofran Inj IVP 4 mg Q4HR PRN Administration Nausea / Vomiting Cozaar 50mg Tablet 1 each 04/22/17 11:00 04/22/17 11:02 PO 1 each DAILY GENA Administration Hydrochlorothiazide 1 each 04/22/17 11:00 04/22/17 11:02 25mg PO 1 each DAILY GENA Administration Valacyclovir 500mg 1 each 04/22/17 11:00 04/22/17 11:02 PO 1 each DAILY GENA Administration Polyethylene Glycol 17 gm 04/21/17 09:00 04/22/17 08:58 Miralax PO 17 gm DAILY GENA Administration Potassium Chloride 20 meq 04/20/17 19:00 04/22/17 13:03 K-Dur PO 20 meq QID GENA Administration Sodium Chloride 10 ml 04/20/17 22:00 04/22/17 13:11 Normal Saline Flush 0.9% IVP Not Given Q8HR GENA Sodium Phosphate 250 mg 04/21/17 12:00 04/22/17 13:03 K-Phos Neutral PO 250 mg TIDWM GENA Administration Temazepam 15 mg 04/21/17 00:18 04/21/17 00:34 Restoril PO 15 mg QPM PRN Administration Insomnia Tramadol HCl 50 mg 04/21/17 14:28 04/21/17 20:46 Ultram PO 50 mg Q4HR PRN Administration PAIN - Lab Result Lab results reviewed: Yes Fish Bone Diagrams: 04/22/17 05:14 04/22/17 05:14 - Diagnostic Imaging Results Diagnostic Imaging Results: Final report reviewed - Additional Planning Condition/Complexity: Improved My Orders: My Active Orders 04/21/17 14:28 Prochlorperazine Inj [Compazine Inj] 10 mg IVP Q4HR PRN traMADol [Ultram] 50 mg PO Q4HR PRN 04/22/17 11:00 Patient Own Med [Patient Own Medication] 1 each PO DAILY Patient Own Med [Patient Own Medication] 1 each PO DAILY Patient Own Med [Patient Own Medication] 1 each PO DAILY 04/22/17 21:00 Patient Own Med [Patient Own Medication] 1 each PO BID traZODone [Desyrel] 50 mg PO QPM Plan Discussed with:: Patient, Spouse Time Spent: 31-60 minutes Subjective - Subjective Patient Reports: Other (Patient states she did not have any fevers overnight but continues to have right leg pain and swelling. She states she feels slightly better than yesterday but still not at her norm. She states she did not sleep well at all.) Nursing Reports: No Complaints Objective Vital Signs: Vital Signs - 24 hr 04/21/17 04/21/17 04/21/17 14:00 15:55 20:29 Temperature 36.9 C 37.0 C 36.7 C Heart Rate [ 60 78 80 Radial] Respiratory 18 20 16 Rate Blood Pressure 109/68 125/60 125/57 L [Left Radial artery] O2 Saturation 97 97 96 04/22/17 04/22/17 04/22/17 00:31 04:35 07:28 Temperature 36.9 C 37.0 C 36.8 C Heart Rate [ 77 71 77 Radial] Respiratory 16 16 18 Rate Blood Pressure 119/52 L 136/63 H 144/74 H [Left Radial artery] O2 Saturation 97 95 94 Oxygen O2 Source Room air I&O (Last 24 Hrs): Intake and Output Totals x24h 04/20/17 04/21/17 04/22/17 23:59 23:59 23:59 Intake Total 710 2646 1719 Output Total 250 250 Balance 460 2396 1719 General: Alert, Oriented x3, Cooperative, Mild distress (Pain in the right leg) HEENT: Atraumatic, PERRLA, EOMI, Mucous membr. moist/pink Neck: Supple, No JVD, No thyromegaly, +2 carotid pulse wo bruit, No LAD Lymphatic: no adenopathy Neuro: Alert, Non Focal, CN 2-12 Grossly Intact, Oriented Times 3 Cardiovascular: Regular rate, Normal S1, Normal S2, No murmurs Respiratory: Chest non-tender, No respiratory distress, Breath sounds nml Abdomen: Normal bowel sounds, Soft, No tenderness, No hepatospenomegaly Extremities: No clubbing, No cyanosis, Normal pulses, Other (Right lower extremity red, swollen, tender, warm - mildly improved redness) Comments/Notes: as above - Results Results: Laboratory Results WBC 10.3 x10^3/uL (4.8-10.8) 04/22/17 05:14 RBC 3.95 10^6/uL (4.20-5.40) L 04/22/17 05:14 Hgb 13.4 g/dL (12.0-16.0) 04/22/17 05:14 Hct 38.3 % (37.0-47.0) 04/22/17 05:14 MCV 97.1 fL (81.0-99.0) 04/22/17 05:14 MCH 33.9 pg (27.0-31.0) H 04/22/17 05:14 MCHC 34.9 g/dL (32.0-36.0) 04/22/17 05:14 RDW 14.0 % (12.0-15.0) 04/22/17 05:14 Plt Count 147 10^3/uL (130-450) 04/22/17 05:14 MPV 8.7 fL (7.9-10.8) 04/22/17 05:14 Neut # 9.0 10^3/uL (1.5-6.6) H 04/22/17 05:14 Lymph # 0.8 10^3/uL (1.5-3.5) L 04/22/17 05:14 [place] # 0.4 10^3/uL (0.0-1.0) 04/22/17 05:14 Eos # 0.1 10^3/uL (0.0-0.7) 04/22/17 05:14 Baso # 0.0 10^3/uL (0.0-0.1) 04/22/17 05:14 Absolute Nucleated RBC 0.00 x10^3/uL 04/22/17 05:14 Nucleated RBCs 0.0 /100WBC 04/22/17 05:14 PT 15.6 secs (9.9-12.6) H 04/20/17 14:10 INR 1.4 (0.8-1.2) H 04/20/17 14:10 Sodium 140 mmol/L (135-145) 04/22/17 05:14 Potassium 4.4 mmol/L (3.5-5.0) 04/22/17 05:14 Chloride 111 mmol/L (101-111) 04/22/17 05:14 Carbon Dioxide 22 mmol/L (21-32) 04/22/17 05:14 Anion Gap 7.0 (6-13) 04/22/17 05:14 BUN 13 mg/dL (6-20) 04/22/17 05:14 Creatinine 0.6 mg/dL (0.4-1.0) 04/22/17 05:14 Estimated GFR (MDRD) 100 (>89) 04/22/17 05:14 Glucose 141 mg/dL (70-100) H 04/22/17 05:14 Lactic Acid 1.4 mmol/L (0.5-2.2) 04/21/17 05:28 Calcium 8.7 mg/dL (8.5-10.3) 04/22/17 05:14 Phosphorus 1.1 mg/dL (2.5-4.6) L 04/22/17 05:14 Magnesium 1.9 mg/dL (1.7-2.8) 04/22/17 05:14 Total Bilirubin 0.7 mg/dL (0.2-1.0) 04/22/17 05:14 AST 56 IU/L (10-42) H 04/22/17 05:14 ALT 54 IU/L (10-60) 04/22/17 05:14 Alkaline Phosphatase 69 IU/L (42-121) 04/22/17 05:14 Total Creatine Kinase 240 IU/L (22-269) 04/21/17 05:28 Total Protein 6.2 g/dL (6.7-8.2) L 04/22/17 05:14 Albumin 3.0 g/dL (3.2-5.5) L 04/22/17 05:14 Globulin 3.2 g/dL (2.1-4.2) 04/22/17 05:14 Albumin/Globulin Ratio 0.9 (1.0-2.2) L 04/22/17 05:14 Lipase 26 U/L (22-51) 04/20/17 14:10 Urine Color DARK YELLOW 04/20/17 18:05 Urine Clarity CLEAR (CLEAR) 04/20/17 18:05 Urine pH 6.0 PH (5.0-7.5) 04/20/17 18:05 Ur Specific [place] 1.025 (1.002-1.030) 04/20/17 18:05 Urine Protein NEGATIVE mg/dL (NEGATIVE) 04/20/17 18:05 Urine Glucose (UA) NEGATIVE mg/dL (NEGATIVE) 04/20/17 18:05 Urine Ketones NEGATIVE mg/dL (NEGATIVE) 04/20/17 18:05 Urine Occult Blood SMALL (NEGATIVE) H 04/20/17 18:05 Urine Nitrite NEGATIVE (NEGATIVE) 04/20/17 18:05 Urine Bilirubin NEGATIVE (NEGATIVE) 04/20/17 18:05 Urine Urobilinogen 0.2 (NORMAL) E.U./dL (NORMAL) 04/20/17 18:05 Ur Leukocyte Esterase TRACE (NEGATIVE) H 04/20/17 18:05 Urine RBC 0-5 /HPF (0-5) 04/20/17 18:05 Urine WBC >25 /HPF (0-5) H 04/20/17 18:05 Ur Squamous Epith Cells FEW Squamous (<= Few) 04/20/17 18:05 Urine Bacteria None Seen /HPF (None Seen) 04/20/17 18:05 Urine Casts 11-25Course Granular /LPF3-5 Hyaline Casts /LPF 04/20/17 18:05 Urine Casts 11-25Course Granular /LPF3-5 Hyaline Casts /LPF 04/20/17 18:05 Urine Mucus Few Strands 04/20/17 18:05 Ur Microscopic Review INDICATED 04/20/17 18:05 Urine Culture Comments INDICATED 04/20/17 18:05
[2017-04-22] MEDS: cefTRIAXone 2 GM in SODIUM CHLORIDE 0.9% MINIBAG 100 ML IV SCH (14:40)
[2017-04-22] MEDS ORDERED: traZODone 50 MG TABLET PO SCH (21:00)
[2017-04-22] MEDS: METOPROLOL 50MG PO SCH (21:37)
[2017-04-23] MEDS: IBUPROFEN 600 MG TABLET PO SCH ×2 (00:50→07:18)
[2017-04-23] MEDS: NS W/20 MEQ KCL 1,000 ML IV SCH (04:30)
[2017-04-23] MEDS: SODIUM CHLORIDE FLUSH 0.9% 10 ML SYRINGE IVP SCH (07:18)
[2017-04-23] MEDS ORDERED: NS W/20 MEQ KCL 1,000 ML IV SCH (09:18)
[2017-04-23 09:22] VITALS: BP 112/59
[2017-04-23] MEDS: NEUTRA-PHOS 250 MG TABLET PO SCH (09:23)
[2017-04-23] MEDS: POTASSIUM CHLORIDE 20 MEQ TABLET PO SCH (09:23)
[2017-04-23] MEDS: MAGNESIUM OXIDE 400 MG TABLET PO SCH (09:23)
[2017-04-23] MEDS: ENOXAPARIN 40 MG/0.4 ML SYRINGE SUBQ SCH (09:23)
[2017-04-23] MEDS: VALACYCLOVIR 500 MG PO SCH (09:24)
[2017-04-23] MEDS: COZAAR 50 MG PO SCH (09:24)
[2017-04-23] MEDS: METOPROLOL 50MG PO SCH (09:24)
[2017-04-23] MEDS: HYDROCHLOROTHIAZIDE 25MG PO SCH (09:24)
[2017-04-23] MEDS: VANCOMYCIN INJ 1 GM in SODIUM CHLORIDE 0.9% 250 ML IV SCH (09:26)
[2017-04-23] MEDS: POLYETHYLENE GLYCOL 3350 17 GM PACKET PO SCH (09:26)
--- NOTE | 2017-04-23 11:32 | Discharge Plan ---
Discharge Plan Disposition: Home, Self Care Condition: Fair Prescriptions: traMADol [Ultram] 50 mg PO Q4HR PRN #15 tablet PRN Reason: Pain Cephalexin [Keflex] 500 mg PO BID #10 capsule Diet: Low Sodium Activity Restrictions: Activity as Tolerated Shower Restrictions: No Driving Restrictions: No Weight Bearing: Full Weight Additional Instructions or Follow Up instructions: You presented to the hospital with sepsis and were found to have cellulitis of your right leg for which you were treated in the hospital with IV antibiotics. You leg is looking better and your white blood cell count has improved. You are being discharged home with oral antibiotics which you will need to continue for 5 more days. You should continue to drink plenty of fluids and ambulate. Also make sure to keep your leg elevated. Follow up with your PCP if you are not getting better or start getting fevers. No Smoking: If you smoke, Please STOP! Call for help. Follow-up with: PATRICK MORALES DO [Physician No Access] -
--- NOTE | 2017-04-23 11:50 | DISCHARGE SUMMARY ---
Discharge Summary Admit Date: 04/20/17 Discharge Date: 04/23/17 Discharging Provider: Osmin Moreno MD Primary Care Provider: Brianne Milton DO Code Status: Attempt Resuscitation Condition at Discharge: Fair Discharge Disposition: 01 Home, Self Care - DIAGNOSES Admission Diagnoses: 1. Sepsis 2. Urinary tract infection 3. Cellulitis 4. Hypokalemia 5. Orbital obesity 6. Hypertension 7. Dysthymic disorder Discharge Diagnoses with Status of Each Condition: 1. Sepsis: Resolved 2. Cellulitis: Improving 3. Urinary tract infection: Resolved 4. Acute kidney injury: Resolved 5. Hypokalemia: Resolved 6. Hypophosphatemia: Resolved 7. Hypomagnesemia: Resolved 8. Hypertension: Stable - HPI History of Present Illness: Patient is a 66-year-old female with a past medical history significant for hypertension, sarcoidosis, nephrolithiasis and dysthymic disorder who presented to the emergency department with complaint of fever and right leg swelling. The patient stated that she was feeling fatigued and exhausted over the last several days the way that she had felt when she had had heat exhaustion about 20 years ago. The patient had been seen in the emergency department the night prior to admission and at that time had been diagnosed with a urinary tract infection but was not prescribed any antibiotics. On presentation the patient was found to have a leukocytosis of 17.7 she was febrile with a temperature of 103 and appeared to be septic s she was hypotensive with acute kidney injury. The patient was found to have a cellulitis on her right lower extremity she was started on IV antibiotics and admitted for sepsis. - HOSPITAL COURSE Hospital Course: The patient was treated for sepsis with IV vancomycin and ceftriaxone the source of her sepsis was thought to be twofold one from her right leg cellulitis and also due to her urinary tract infection. During the hospitalization the patient did have diarrhea from the antibiotics and did have a number of electrolyte abnormalities which were supplemented during the hospitalization. With IV antibiotics the patient did have significant improvement of her right lower extremity cellulitis over the course of 3 days in the hospital. The patient's leukocytosis also improved from 17.7 down to 10.3. The patient had a mild acute kidney injury which did resolve prior to discharge from the hospital with IV fluids. The patient presented with hypotension which improved with treatment of her infection and IV fluids. The patient remained afebrile and had significant improvement in the redness and swelling of her right lower extremity. The patient was discharged home with oral antibiotics placed on clindamycin for an additional 5 days of treatment. She was also prescribed tramadol for pain control and was given a short supply. The patient was told to follow-up with her primary care physician if her right lower externally cellulitis worsens or if she begins having fevers again. - ALLERGIES Allergies/Adverse Reactions: Allergies Allergy/AdvReac Type Severity Reaction Status Date / Time Penicillins Allergy Hives Verified 04/20/17 13:53 Sulfa (Sulfonamide Allergy Emesis Verified 04/20/17 13:53 Antibiotics) morphine AdvReac Anxiety Verified 04/20/17 13:53 - MEDICATIONS Home Medications: Ambulatory Orders Medication Instructions Recorded Confirmed Hydrochlorothiazide 25 mg PO DAILY 04/19/17 04/21/17 Losartan [Cozaar] 50 mg PO DAILY 04/21/17 04/21/17 Metoprolol Succinate 50 mg PO BID 04/21/17 04/22/17 Valacyclovir HCl [Valacyclovir] 500 mg PO DAILY 04/21/17 04/21/17 Cephalexin [Keflex] 500 mg PO BID #10 capsule 04/23/17 traMADol [Ultram] 50 mg PO Q4HR PRN #15 tablet 04/23/17 - PHYSICAL EXAM AT DISCHARGE General Appearance: positive: No acute distress, Alert Eyes Bilateral: positive: Normal inspection, PERRL, EOMI, No lid inflammation, Conjunctivae nml, No scleral icterus ENT: positive: ENT inspection nml, Pharynx nml, No signs of dehydration. negative: Purulent nasal drainage, Pharyngeal erythema, Oral lesions Neck: positive: Nml inspection, Thyroid nml, No JVD, Trachea midline. negative : Thyromegaly, Lymphadenopathy (R), Lymphadenopathy (L), Carotid bruit, Tracheal deviation Respiratory: positive: Chest non-tender, No respiratory distress. negative: Wheezes, Rales, Rhonchi Cardiovascular: positive: Regular rate & rhythm, No murmur, No gallop Peripheral Pulses: positive: 2+ Abdomen: positive: Non-tender, No organomegaly, Nml bowel sounds, No distention. negative: Guarding, Rebound, Hepatomegaly Back: positive: Nml inspection. negative: CVA tenderness (R), CVA tenderness (L ) Skin: positive: Other (Right lower extremity swollen, erythematous, tender however significantly improved since admission.). negative: Cyanosis, Pallor Extremities: positive: Full ROM, Other (Right lower extremity swollen, erythematous, tender however significantly improved since admission.) Neurologic/Psychiatric: positive: Oriented x3, CN's nml (2-12), Motor nml, Sensation nml, Mood/affect nml - LABS Result Diagrams: 04/22/17 05:14 04/22/17 05:14 Other Lab Results: Laboratory Results WBC 10.3 x10^3/uL (4.8-10.8) 04/22/17 05:14 RBC 3.95 10^6/uL (4.20-5.40) L 04/22/17 05:14 Hgb 13.4 g/dL (12.0-16.0) 04/22/17 05:14 Hct 38.3 % (37.0-47.0) 04/22/17 05:14 MCV 97.1 fL (81.0-99.0) 04/22/17 05:14 MCH 33.9 pg (27.0-31.0) H 04/22/17 05:14 MCHC 34.9 g/dL (32.0-36.0) 04/22/17 05:14 RDW 14.0 % (12.0-15.0) 04/22/17 05:14 Plt Count 147 10^3/uL (130-450) 04/22/17 05:14 MPV 8.7 fL (7.9-10.8) 04/22/17 05:14 Neut # 9.0 10^3/uL (1.5-6.6) H 04/22/17 05:14 Lymph # 0.8 10^3/uL (1.5-3.5) L 04/22/17 05:14 [place] # 0.4 10^3/uL (0.0-1.0) 04/22/17 05:14 Eos # 0.1 10^3/uL (0.0-0.7) 04/22/17 05:14 Baso # 0.0 10^3/uL (0.0-0.1) 04/22/17 05:14 Absolute Nucleated RBC 0.00 x10^3/uL 04/22/17 05:14 Nucleated RBCs 0.0 /100WBC 04/22/17 05:14 PT 15.6 secs (9.9-12.6) H 04/20/17 14:10 INR 1.4 (0.8-1.2) H 04/20/17 14:10 Sodium 140 mmol/L (135-145) 04/22/17 05:14 Potassium 4.4 mmol/L (3.5-5.0) 04/22/17 05:14 Chloride 111 mmol/L (101-111) 04/22/17 05:14 Carbon Dioxide 22 mmol/L (21-32) 04/22/17 05:14 Anion Gap 7.0 (6-13) 04/22/17 05:14 BUN 13 mg/dL (6-20) 04/22/17 05:14 Creatinine 0.6 mg/dL (0.4-1.0) 04/22/17 05:14 Estimated GFR (MDRD) 100 (>89) 04/22/17 05:14 Glucose 141 mg/dL (70-100) H 04/22/17 05:14 Lactic Acid 1.4 mmol/L (0.5-2.2) 04/21/17 05:28 Calcium 8.7 mg/dL (8.5-10.3) 04/22/17 05:14 Phosphorus 1.1 mg/dL (2.5-4.6) L 04/22/17 05:14 Magnesium 1.9 mg/dL (1.7-2.8) 04/22/17 05:14 Total Bilirubin 0.7 mg/dL (0.2-1.0) 04/22/17 05:14 AST 56 IU/L (10-42) H 04/22/17 05:14 ALT 54 IU/L (10-60) 04/22/17 05:14 Alkaline Phosphatase 69 IU/L (42-121) 04/22/17 05:14 Total Creatine Kinase 240 IU/L (22-269) 04/21/17 05:28 Total Protein 6.2 g/dL (6.7-8.2) L 04/22/17 05:14 Albumin 3.0 g/dL (3.2-5.5) L 04/22/17 05:14 Globulin 3.2 g/dL (2.1-4.2) 04/22/17 05:14 Albumin/Globulin Ratio 0.9 (1.0-2.2) L 04/22/17 05:14 Lipase 26 U/L (22-51) 04/20/17 14:10 Urine Color DARK YELLOW 04/20/17 18:05 Urine Clarity CLEAR (CLEAR) 04/20/17 18:05 Urine pH 6.0 PH (5.0-7.5) 04/20/17 18:05 Ur Specific [place] 1.025 (1.002-1.030) 04/20/17 18:05 Urine Protein NEGATIVE mg/dL (NEGATIVE) 04/20/17 18:05 Urine Glucose (UA) NEGATIVE mg/dL (NEGATIVE) 04/20/17 18:05 Urine Ketones NEGATIVE mg/dL (NEGATIVE) 04/20/17 18:05 Urine Occult Blood SMALL (NEGATIVE) H 04/20/17 18:05 Urine Nitrite NEGATIVE (NEGATIVE) 04/20/17 18:05 Urine Bilirubin NEGATIVE (NEGATIVE) 04/20/17 18:05 Urine Urobilinogen 0.2 (NORMAL) E.U./dL (NORMAL) 04/20/17 18:05 Ur Leukocyte Esterase TRACE (NEGATIVE) H 04/20/17 18:05 Urine RBC 0-5 /HPF (0-5) 04/20/17 18:05 Urine WBC >25 /HPF (0-5) H 04/20/17 18:05 Ur Squamous Epith Cells FEW Squamous (<= Few) 04/20/17 18:05 Urine Bacteria None Seen /HPF (None Seen) 04/20/17 18:05 Urine Casts 11-25Course Granular /LPF3-5 Hyaline Casts /LPF 04/20/17 18:05 Urine Casts 11-25Course Granular /LPF3-5 Hyaline Casts /LPF 04/20/17 18:05 Urine Mucus Few Strands 04/20/17 18:05 Ur Microscopic Review INDICATED 04/20/17 18:05 Urine Culture Comments INDICATED 04/20/17 18:05 - DIAGNOSTIC IMAGING Diagnostic Imaging Results: Final report reviewed Diagnostic Imaging Results Comments: Chest x-ray Impression: Unremarkable chest for age, body size and inspiratory effort. No pneumonia or other demonstrated cause for fever. Venous duplex right lower extremity Impression: No evidence for deep venous thrombosis. - FOLLOW UP Follow Up: Patient will be continued on antibiotics with oral clindamycin for 5 additional days to complete treatment for cellulitis. She will follow-up with her primary care physician if symptoms worsen or she develops fever. - TIME SPENT Time Spent in Discharge (Minutes): 40
== END 2017-04-23 12:17 | disposition home or self-care (01) | DRG 872 ==
LOC: ED 13:43 → MS2 17:55 → ED 18:30
PROVIDERS: ADMIT Internal Medicine; ATTEND Internal Medicine
DX: A41.9 Sepsis, unspecified organism (principal); L03.115 Cellulitis of right lower limb; Z68.41 Body mass index [BMI] 40.0-44.9, adult; B35.3 Tinea pedis; N17.9 Acute kidney failure, unspecified; I47.2 Ventricular tachycardia; N30.01 Acute cystitis with hematuria; K52.1 Toxic gastroenteritis and colitis; T36.95XA Adverse effect of unspecified systemic antibiotic, initial encounter; Y92.239 Unspecified place in hospital as the place of occurrence of the external cause; R65.20 Severe sepsis without septic shock; E87.6 Hypokalemia; E83.39 Other disorders of phosphorus metabolism; E83.42 Hypomagnesemia; I10 Essential (primary) hypertension; E66.01 Morbid (severe) obesity due to excess calories; F34.1 Dysthymic disorder; Z86.2 Personal history of diseases of the blood and blood-forming organs and certain disorders involving the immune mechanism; Z87.442 Personal history of urinary calculi; Z88.0 Allergy status to penicillin
CPT/HCPCS: 36415; 71010; 80053; 81001; 81003; 82550; 83605; 83690; 83735; 84100; 85025; 85610; 87040; 87086; 93005; 96365; 96366; 96368; 96375; 99284; 99285

== ENCOUNTER 2018-12-28 13:29 | Outpatient (CLI) | payer MEDICARE, OTHER ==
--- NOTE | 2018-12-28 16:45 | Ultrasound Report ---
Reason: PERSONAL HISTORY OR URINARY CALCULI Procedure Date: 12/28/2018 Accession Number: [id number] / [id number] Procedure: US - Retroperitoneal CPT Code: FULL RESULT: EXAM: RENAL ULTRASOUND EXAM DATE: 12/28/2018 03:19 PM. CLINICAL HISTORY: PERSONAL HISTORY OR URINARY CALCULI. COMPARISON: None. TECHNIQUE: Real-time scanning was performed with static images obtained. FINDINGS: Right Kidney: 11.2 x 5.9 x 6.3 cm. Normal echotexture with no stones, contour-deforming masses, or hydronephrosis. Left Kidney: 11.5 x 6.0 x 6.4 cm. Normal cortical echotexture with no masses. Mild hydronephrosis of the upper pole collecting system. 1.5 cm stone of the inferior pole left kidney. Bladder: Normal left ureteral jet; no observed right ureteral jet for 8 minutes of observation. The prevoid bladder volume was 303 cc. The postvoid bladder volume was 31 cc. Other: None. IMPRESSION: 1. Left-sided nephrolithiasis with 1.5 cm stone inferior pole. 2. Mild hydronephrosis upper pole collecting system, left kidney. 3. Nonvisualization of the right ureteral jet with no evidence of a right-sided hydronephrosis. RADIA
== END 2018-12-28 13:30 | disposition home or self-care (01) ==
LOC: DI 13:29
PROVIDERS: ATTEND Internal Medicine
DX: N13.2 Hydronephrosis with renal and ureteral calculous obstruction (principal)
CPT/HCPCS: 76770

== ENCOUNTER 2018-12-31 11:21 | Emergency (ER) | payer MEDICARE, OTHER ==
[2018-12-31 11:53] LABS: BILIRUBIN,URINE NEGATIVE (NEGATIVE); GLUCOSE, URINE (UA) NEGATIVE (NEGATIVE); KETONES,URINE (UA) NEGATIVE (NEGATIVE); LEUKOCYTE ESTERASE, URINE TRACE (NEGATIVE); NITRITE,URINE NEGATIVE (NEGATIVE); OCCULT BLOOD,URINE LARGE (NEGATIVE); PROTEIN,URINE 100 mg/dL (NEGATIVE); UROBILINOGEN,URINE 0.2 (NORMAL) E.U./dL (NORMAL)
[2018-12-31 11:57] LABS: CLARITY,URINE SL. CLOUDY (CLEAR)
[2018-12-31 12:06] LABS: BACTERIA,URINE Few /HPF (None Seen); RBC,URINE TNTC /HPF (0-5); SQUAMOUS EPITHELIAL CELL,UR RARE Squamous (<= Few)
[2018-12-31] MEDS ORDERED: KETOROLAC 30 MG/ML VIAL IVP STA (12:16)
[2018-12-31] MEDS ORDERED: ONDANSETRON 4 MG/2 ML VIAL IVP STA (12:16)
[2018-12-31] MEDS ORDERED: HYDROmorphone 1 MG/ML CARPUJECT IVP STA (12:16)
[2018-12-31] MEDS ORDERED: SODIUM CHLORIDE 0.9% 1,000 ML IV ONE (12:16)
--- NOTE | 2018-12-31 12:18 | ED Physician Documentation ---
PD HPI ABD PAIN - Stated complaint Stated Complaint: V/N BACK PX - Chief complaint Chief Complaint: Abd Pain - History obtained from History obtained from: Patient, Family - History of Present Illness Timing - onset: Last night (68-year-old woman with history of renal colic presents with left flank pain radiating to the left groin as well as urinary frequency and hematuria. She had a routine ultrasound done 4 days ago which showed a 1.5 cm stone on the left with mild hydronephrosis. Of note they were unable to see a ureteral jet on the right but there was no hydronephrosis on that side. She last saw a urologist about 18 months ago and had a minimally successful lithotripsy 2 years ago. She denies fevers or chills, she is nauseous and has been vomiting.) Review of Systems Ten Systems: 10 systems reviewed and negative Constitutional: reports: Sweats GI: reports: Abdominal Pain, Nausea, Vomiting. 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 HEENT: Tonsil/Adenoidectomy - Present Medications Home Medications: Ambulatory Orders Medication Instructions Recorded Confirmed hydroCHLOROthiazide 25 mg PO DAILY 04/19/17 04/21/17 [Hydrochlorothiazide] Losartan [Cozaar] 50 mg PO DAILY 04/21/17 04/21/17 Metoprolol Succinate 50 mg PO BID 04/21/17 04/22/17 Valacyclovir HCl [Valacyclovir] 500 mg PO DAILY 04/21/17 04/21/17 Cephalexin [Keflex] 500 mg PO BID #10 capsule 04/23/17 traMADol [Ultram] 50 mg PO Q4HR PRN #15 tablet 04/23/17 Ondansetron Odt [Zofran] 4 mg TL Q6H PRN #10 tablet 12/31/18 Oxycodone HCl/Acetaminophen 1 - 2 each PO Q6H PRN #14 tablet 12/31/18 [Percocet 5-325 mg Tablet] Tamsulosin [Flomax] 0.4 mg PO DAILY #14 capsule 12/31/18 - Allergies Allergies/Adverse Reactions: Allergies Allergy/AdvReac Type Severity Reaction Status Date / Time Sulfa (Sulfonamide Allergy Emesis Verified 12/31/18 11:29 Antibiotics) Penicillins AdvReac Emesis Verified 12/31/18 11:29 - Social History Does the pt smoke?: No Smoking Status: Never smoker Does the pt drink ETOH?: Yes Does the pt have substance abuse?: No - Family History Family history: reports: Non contributory - Immunizations Immunizations are current?: Yes - POLST Patient has POLST: No PD ED PE NORMAL - Vitals Vital signs reviewed: Yes - General General: Alert and oriented X 3, Other (uncomfortable, nauseous) - HEENT HEENT: PERRL, EOMI - Neck Neck: Supple, no meningeal sign, No bony TTP - Cardiac Cardiac: RRR, No murmur - Respiratory Respiratory: No respiratory distress, Clear bilaterally - Abdomen Abdomen: Normal bowel sounds, Soft, Non tender - Back Back: No CVA TTP, No spinal TTP - Derm Derm: Normal color, Warm and dry - Extremities Extremities: No calf tenderness / cord, Other (mild edema and chronic red R ankle, nl per her) - Neuro Neuro: Alert and oriented X 3, Normal speech Results - Vitals Vitals: Vital Signs - 24 hr 12/31/18 12/31/18 11:26 11:28 Temperature 36.8 C 36.8 C Heart Rate 67 67 Respiratory 20 20 Rate Blood Pressure 169/78 H 169/78 H O2 Saturation 96 96 Oxygen O2 Source Room air - Labs Labs: Laboratory Tests 12/31/18 12/31/18 12/31/18 11:31 12:40 12:40 WBC 11.8 H RBC 4.86 Hgb 16.1 H Hct 46.5 MCV 95.6 MCH 33.2 H MCHC 34.7 RDW 13.4 Plt Count 235 MPV 7.5 L Neut # (Auto) 8.8 H Lymph # (Auto) 2.0 [place] # (Auto) 0.8 Eos # (Auto) 0.2 Baso # (Auto) 0.1 Absolute Nucleated RBC 0.01 Nucleated RBC % 0.1 Sodium 138 Potassium 3.6 Chloride 101 Carbon Dioxide 26 Anion Gap 11.0 BUN 23 H Creatinine 1.0 Estimated GFR (MDRD) 55 L Glucose 133 H Calcium 10.0 Total Bilirubin 0.7 AST 36 ALT 32 Alkaline Phosphatase 65 Total Protein 7.1 Albumin 4.2 Globulin 2.9 Albumin/Globulin Ratio 1.4 Lipase 27 Urine Color DARK YELLOW Urine Clarity SL. CLOUDY Urine pH 5.0 Ur Specific [place] 1.025 Urine Protein 100 H Urine Glucose (UA) NEGATIVE Urine Ketones NEGATIVE Urine Occult Blood LARGE H Urine Nitrite NEGATIVE Urine Bilirubin NEGATIVE Urine Urobilinogen 0.2 (NORMAL) Ur Leukocyte Esterase TRACE H Urine RBC TNTC H Urine WBC 0-3 Ur Squamous Epith Cells RARE Squamous Urine Bacteria Few Ur Microscopic Review INDICATED Urine Culture Comments INDICATED PD MEDICAL DECISION MAKING - ED course ED course: [id number] woman presents with left flank pain. Had an ultrasound the other day showing large stone on that side. Her pain was easily controlled with a single dose of narcotics Toradol and Zofran. She was pain-free after that. She has a urologist to whom she is already been referred. Departure - Departure Disposition: Home, Self Care Clinical Impression: Renal colic Condition: Good Record reviewed to determine appropriate education?: Yes Instructions: ED Stone Renal W Colic Prescriptions: Ondansetron Odt [Zofran] 4 mg TL Q6H PRN #10 tablet PRN Reason: Nausea / Vomiting Oxycodone HCl/Acetaminophen [Percocet 5-325 mg Tablet] 1 - 2 each PO Q6H PRN #14 tablet PRN Reason: pain Tamsulosin [Flomax] 0.4 mg PO DAILY #14 capsule Comments: Follow-up with your urologist, next available appointment with the copy of the labs and ultrasound. Return if worse or if pain is uncontrolled with the medications.
[2018-12-31 12:55] LABS: BASOPHILS # (AUTO) 0.1 10^3/uL (0.0-0.1); BASOPHILS % (AUTO) 0.6 %; EOSINOPHILS # (AUTO) 0.2 10^3/uL (0.0-0.7); EOSINOPHILS % (AUTO) 1.5 %; HGB - HEMOGLOBIN 16.1 g/dL (12.0-16.0); LYMPHOCYTES % (AUTO) 16.9 %; MEAN CORPUSCULAR HEMOGLOBIN 33.2 pg (27.0-31.0); MEAN CORPUSCULAR HGB CONC 34.7 g/dL (32.0-36.0); MEAN CORPUSCULAR VOLUME 95.6 fL (81.0-99.0); MEAN PLATELET VOLUME 7.5 fL (7.9-10.8); MONOCYTES # (AUTO) 0.8 10^3/uL (0.0-1.0); MONOCYTES % (AUTO) 6.7 %; NEUTROPHILS # (AUTO) 8.8 10^3/uL (1.5-6.6); NEUTROPHILS % (AUTO) 74.3 %; PLT - PLATELET COUNT 235 10^3/uL (130-450); RED BLOOD COUNT 4.86 10^6/uL (4.20-5.40); RED CELL DISTRIBUTION WIDTH 13.4 % (12.0-15.0); WHITE BLOOD COUNT 11.8 x10^3/uL (4.8-10.8)
[2018-12-31 13:12] LABS: ALBUMIN 4.2 g/dL (3.2-5.5); ALBUMIN/GLOBULIN RATIO 1.4 (1.0-2.2); BILIRUBIN,TOTAL 0.7 mg/dL (0.2-1.0); TOTAL PROTEIN 7.1 g/dL (6.7-8.2)
[2018-12-31 13:44] VITALS: BP 135/86
== END 2018-12-31 14:20 | disposition home or self-care (01) ==
LOC: ED 11:21
DX: N13.2 Hydronephrosis with renal and ureteral calculous obstruction (principal); I10 Essential (primary) hypertension
CPT/HCPCS: 36415; 80053; 81001; 83690; 85025; 87086; 96374; 99283; J1170; 81003

== ENCOUNTER 2019-03-07 23:26 | Outpatient (CLI) | payer MEDICARE, OTHER | END 2019-03-07 23:27 | disposition critical access hospital (66) | LOC: EMS 23:26 | PROVIDERS: ATTEND Surgery | DX: R00.0 Tachycardia, unspecified (principal) | CPT/HCPCS: A0425; A0427 ==

== ENCOUNTER 2019-03-07 23:53 | Emergency (ER) | payer MEDICARE, OTHER ==
[2019-03-08] MEDS ORDERED: SODIUM CHLORIDE 0.9% 1,000 ML IV ONE (00:08)
[2019-03-08] MEDS ORDERED: METOPROLOL 5 MG/5 ML VIAL IVP STA (00:08)
[2019-03-08 00:32] LABS: BASOPHILS # (AUTO) 0.1 10^3/uL (0.0-0.1); BASOPHILS % (AUTO) 0.5 %; EOSINOPHILS # (AUTO) 0.1 10^3/uL (0.0-0.7); EOSINOPHILS % (AUTO) 1.1 %; HGB - HEMOGLOBIN 15.7 g/dL (12.0-16.0); LYMPHOCYTES # (AUTO) 1.8 10^3/uL (1.5-3.5); LYMPHOCYTES % (AUTO) 16.2 %; MEAN CORPUSCULAR HEMOGLOBIN 32.8 pg (27.0-31.0); MEAN CORPUSCULAR HGB CONC 34.4 g/dL (32.0-36.0); MEAN CORPUSCULAR VOLUME 95.4 fL (81.0-99.0); MEAN PLATELET VOLUME 9.7 fL (7.9-10.8); MONOCYTES # (AUTO) 0.5 10^3/uL (0.0-1.0); MONOCYTES % (AUTO) 4.5 %; NEUTROPHILS # (AUTO) 8.8 10^3/uL (1.5-6.6); NEUTROPHILS % (AUTO) 77.3 %; PLT - PLATELET COUNT 248 10^3/uL (130-450); RED BLOOD COUNT 4.78 10^6/uL (4.20-5.40); RED CELL DISTRIBUTION WIDTH 12.9 % (12.0-15.0); WHITE BLOOD COUNT 11.3 x10^3/uL (4.8-10.8)
[2019-03-08 00:51] LABS: BILIRUBIN,TOTAL 0.8 mg/dL (0.2-1.0); CALCIUM 9.6 mg/dL (8.5-10.3); CREATININE 0.7 mg/dL (0.4-1.0)
[2019-03-08 00:52] LABS: ALBUMIN/GLOBULIN RATIO 1.3 (1.0-2.2)
[2019-03-08] MEDS ORDERED: KETOROLAC 15 MG/ML VIAL IVP STA (01:02)
[2019-03-08] MEDS ORDERED: MIDAZOLAM 2 MG/2 ML VIAL IVP STA (01:02)
[2019-03-08] MEDS ORDERED: ADENOSINE 6 MG/2 ML VIAL IVP STA (01:03)
[2019-03-08] MEDS ORDERED: ADENOSINE 6 MG/2 ML VIAL IVP ONE (01:19)
[2019-03-08] MEDS ORDERED: POTASSIUM CHLORIDE 20 MEQ TABLET PO STA (01:30)
--- NOTE | 2019-03-08 01:47 | ED Physician Documentation ---
PD HPI CHEST PAIN - Stated complaint Stated Complaint: SVT - Chief complaint Chief Complaint: Cardiac - History obtained from History obtained from: Patient - History of Present Illness Timing - onset: How many hours ago (3) Timing - onset during: Rest Timing - duration: Hours (3) Timing - details: Abrupt onset, Still present Quality: Tightness Location: Substernal Radiation: No: Jaw, Neck Worsened by: No: Exertion, Inspiration, Movement Associated symptoms: Nausea, Palpitations. No: Shortness of air, Feeling faint / dizzy Similar symptoms before: Diagnosis (had episode of SVT in the past years ago treated with cardioversion that she did not like. Recently has had similar symptoms for just few minutes at a time and improved with breath holding or trying to make herself vomit, over the past few days or 1-2 weeks. No medical eval.) Recently seen: Not recently seen Review of Systems Constitutional: denies: Fever, Chills, Myalgias Nose: denies: Rhinorrhea / runny nose, Congestion Throat: denies: Sore throat Respiratory: denies: Cough GI: reports: Nausea. denies: Abdominal Pain, Vomiting, Diarrhea : denies: Dysuria, Frequency Neurologic: reports: Generalized weakness. 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 HEENT: Tonsil/Adenoidectomy Derm: Skin cancer surgery - Present Medications Home Medications: Ambulatory Orders Medication Instructions Recorded Confirmed hydroCHLOROthiazide 25 mg PO DAILY 04/19/17 04/21/17 [Hydrochlorothiazide] Losartan [Cozaar] 50 mg PO DAILY 04/21/17 04/21/17 Metoprolol Succinate 25 mg PO BID 04/21/17 04/22/17 Valacyclovir HCl [Valacyclovir] 500 mg PO DAILY 04/21/17 04/21/17 Ondansetron Odt [Zofran] 4 mg TL Q6H PRN #10 tablet 12/31/18 Tamsulosin [Flomax] 0.4 mg PO DAILY PRN 03/08/19 - Allergies Allergies/Adverse Reactions: Allergies Allergy/AdvReac Type Severity Reaction Status Date / Time Sulfa (Sulfonamide Allergy Emesis Verified 03/07/19 23:59 Antibiotics) Penicillins AdvReac Emesis Verified 03/07/19 23:59 [place] AdvReac Emesis Uncoded 03/08/19 00:22 - Social History Does the pt smoke?: No Smoking Status: Never smoker Does the pt drink ETOH?: Yes Does the pt have substance abuse?: No - Immunizations Immunizations are current?: No Immunizations: TDAP >10years/unknown - POLST Patient has POLST: No PD ED PE NORMAL - Vitals Vital signs reviewed: Yes - General General: Alert and oriented X 3, No acute distress, Well developed/nourished - HEENT HEENT: Pharynx benign - Neck Neck: Supple, no meningeal sign, No adenopathy, No JVD - Cardiac Cardiac: No murmur. No: RRR (regular but fast at 135-145) - Respiratory Respiratory: Clear bilaterally - Abdomen Abdomen: Soft, Non tender - Derm Derm: Normal color, Warm and dry - Extremities Extremities: No tenderness to palpate, Normal ROM s pain, No edema, No calf tenderness / cord - Neuro Neuro: Alert and oriented X 3, No motor deficit, Normal speech Results - Vitals Vitals: Oxygen O2 Source Room air - EKG (time done) 00:00 Rate: Rate (enter#) (136) Rhythm: SVT [place]: Normal Ischemia: Normal ST segments, ST depression. No: ST elevation c/w ischemia, ST elevation c/w repol Compare to prior EKG: Old EKG unavailable - Labs Labs: Laboratory Tests 03/08/19 03/08/19 00:29 00:29 WBC 11.3 H RBC 4.78 Hgb 15.7 Hct 45.6 MCV 95.4 MCH 32.8 H MCHC 34.4 RDW 12.9 Plt Count 248 MPV 9.7 Neut # (Auto) 8.8 H Lymph # (Auto) 1.8 [place] # (Auto) 0.5 Eos # (Auto) 0.1 Baso # (Auto) 0.1 Absolute Nucleated RBC 0.00 Nucleated RBC % 0.0 Sodium 140 Potassium 3.3 L Chloride 104 Carbon Dioxide 21 Anion Gap 15.0 H BUN 23 H Creatinine 0.7 Estimated GFR (MDRD) 83 L Glucose 203 H Calcium 9.6 Magnesium 2.0 Total Bilirubin 0.8 AST 83 H ALT 92 H Alkaline Phosphatase 61 Total Protein 7.0 Albumin 4.0 Globulin 3.0 Albumin/Globulin Ratio 1.3 Lipase 29 PD MEDICAL DECISION MAKING - ED course Complexity details: re-evaluated patient (gave Metoprolol IV with some slowing but not converted. Did convert with Adenosine, and gave toradol and Versed just prior to it, so she did not feel uncomfortable with the medication. ), considered differential (SVT and sounds like brief episodes the past couple of weeks. ), d/w patient Departure - Departure Disposition: 01 Home, Self Care Clinical Impression: SVT (supraventricular tachycardia) Condition: Stable Record reviewed to determine appropriate education?: Yes Instructions: ED Tachycardia Pat PSVT Follow-Up: ANTHONY CAGLE MD [Primary Care Provider] - Comments: Stay well-hydrated. Usual medications at home. Usual activity. Return as needed Discharge Date/Time: 03/08/19 02:09
[2019-03-08 02:00] VITALS: BP 140/73
== END 2019-03-08 02:09 | disposition home or self-care (01) ==
LOC: EDUNIT# → ED 23:53
DX: I47.1 Supraventricular tachycardia (principal); I10 Essential (primary) hypertension
CPT/HCPCS: 36415; 80053; 83690; 83735; 85025; 93005; 96374; 96375; 99283; 99284; A9270; J0153

== ENCOUNTER 2019-08-22 11:59 | Outpatient (CLI) | payer MEDICARE, OTHER ==
[2019-08-22 17:30] LABS: BILIRUBIN,URINE NEGATIVE (NEGATIVE); GLUCOSE, URINE (UA) NEGATIVE (NEGATIVE); KETONES,URINE (UA) NEGATIVE (NEGATIVE); LEUKOCYTE ESTERASE, URINE SMALL (NEGATIVE); NITRITE,URINE NEGATIVE (NEGATIVE); OCCULT BLOOD,URINE NEGATIVE (NEGATIVE); PH,URINE 5.5 PH (5.0-7.5); PROTEIN,URINE NEGATIVE (NEGATIVE); UROBILINOGEN,URINE 0.2 (NORMAL) E.U./dL (NORMAL)
[2019-08-22 17:31] LABS: BASOPHILS # (AUTO) 0.1 10^3/uL (0.0-0.1); BASOPHILS % (AUTO) 0.8 %; EOSINOPHILS # (AUTO) 0.3 10^3/uL (0.0-0.7); EOSINOPHILS % (AUTO) 3.2 %; HGB - HEMOGLOBIN 16.6 g/dL (12.0-16.0); LYMPHOCYTES # (AUTO) 2.7 10^3/uL (1.5-3.5); LYMPHOCYTES % (AUTO) 32.1 %; MEAN CORPUSCULAR HGB CONC 34.7 g/dL (32.0-36.0); MEAN CORPUSCULAR VOLUME 95.2 fL (81.0-99.0); MEAN PLATELET VOLUME 10.6 fL (7.9-10.8); MONOCYTES # (AUTO) 0.6 10^3/uL (0.0-1.0); NEUTROPHILS # (AUTO) 4.8 10^3/uL (1.5-6.6); NEUTROPHILS % (AUTO) 56.3 %; PLT - PLATELET COUNT 230 10^3/uL (130-450); RED BLOOD COUNT 5.03 10^6/uL (4.20-5.40); RED CELL DISTRIBUTION WIDTH 12.7 % (12.0-15.0); WHITE BLOOD COUNT 8.4 x10^3/uL (4.8-10.8)
[2019-08-22 17:55] LABS: CLARITY,URINE CLOUDY (CLEAR)
[2019-08-22 17:57] LABS: AMORPHOUS SEDIMENT,UR Marked /LPF; BACTERIA,URINE None Seen /HPF (None Seen); CRYSTALS,URINE 3-5 Calcium Oxalate /LPF; RBC,URINE None Seen /HPF (0-5); SQUAMOUS EPITHELIAL CELL,UR NONE SEEN (<= Few)
[2019-08-22 18:24] LABS: ALBUMIN 4.1 g/dL (3.2-5.5); ALBUMIN/GLOBULIN RATIO 1.4 (1.0-2.2); ALKALINE PHOSPHATASE 62 IU/L (42-121); ALT ALANINE AMINOTRANSFERASE 36 IU/L (10-60); AST ASPARTATE AMINOTRANSFERASE 34 IU/L (10-42); BILIRUBIN,TOTAL 0.9 mg/dL (0.2-1.0); BUN - BLOOD UREA NITROGEN 16 mg/dL (6-20); CALCIUM 9.9 mg/dL (8.5-10.3); CARBON DIOXIDE - CO2 29 mmol/L (21-32); CHLORIDE 103 mmol/L (101-111); CHOL/HDL RATIO 4.7 (<4.4); CHOLESTEROL 213 mg/dL; CREATININE 0.7 mg/dL (0.4-1.0); CRP HIGH SENSITIVITY 8.1 mg/L; GFR - MDRD 83 (>89); GLUCOSE 142 mg/dL (70-100); HDL CHOLESTEROL 45 mg/dL; LDL CHOLESTEROL,CALCULATED 138 mg/dL; LDL/HDL RATIO 3.1 (<4.4); SODIUM 142 mmol/L (135-145); TOTAL PROTEIN 7.1 g/dL (6.7-8.2); VLDL CHOLESTEROL 30 mg/dL
[2019-08-22 18:27] LABS: THYROID STIMULATING HORMONE 2.15 uIU/mL (0.34-5.60)
[2019-08-22 18:29] LABS: FREE T4 (FREE THYROXINE) 0.82 ng/dL (0.58-1.64)
[2019-08-22 18:34] LABS: FERRITIN 179.3 ng/mL (11.0-306.8); TOTAL T3 1.06 ng/mL (0.87-1.78)
[2019-08-22 18:50] LABS: HB2 TOTAL 17.2 g/dL; HEMOGLOBIN A1C 0.76 g/dL; HEMOGLOBIN A1C % 6.2 % (4.6-6.2)
[2019-08-23 12:04] LABS: HOMOCYSTEINE 8.6 umol/L (<10.4)
[2019-08-23 14:48] LABS: % IRON SATURATION 30 % (20-50); IRON 95 ug/dL (28-170); TOTAL IRON BINDING CAPACITY 321 ug/dL (250-450); TRANSFERRIN 229 mg/dL (192-382)
== END 2019-08-22 12:00 | disposition home or self-care (01) ==
LOC: LAB.S 11:59
PROVIDERS: ATTEND Family Medicine
DX: Z68.41 Body mass index [BMI] 40.0-44.9, adult (principal); I10 Essential (primary) hypertension; F33.9 Major depressive disorder, recurrent, unspecified; R73.03 Prediabetes; I47.1 Supraventricular tachycardia; E55.9 Vitamin D deficiency, unspecified; R94.5 Abnormal results of liver function studies; R79.9 Abnormal finding of blood chemistry, unspecified
CPT/HCPCS: 36415; 80053; 80061; 81001; 81003; 82306; 82626; 82728; 83036; 83090; 83540; 83721; 84439; 84443; 84466; 84480; 84481; 84482; 85025; 86141; 87086

== ENCOUNTER 2020-11-23 07:20 | Outpatient (CLI) | payer MEDICARE, OTHER ==
--- NOTE | 2020-11-23 14:17 | Ultrasound Report ---
PROCEDURE: Abdomen Limited INDICATIONS: HYDRONEPHROSIS, ELEVATED LIVER ENZYMES TECHNIQUE: Real-time focused scanning was performed of the abdomen, with image documentation. COMPARISON: PROCEDURE: Abdomen Limited INDICATIONS: HYDRONEPHROSIS, ELEVATED LIVER ENZYMES TECHNIQUE: Real-time scanning was performed of the abdominal and retroperitoneal organs, with image documentatio n. COMPARISON: Prior renal ultrasound dated 12/28/2018. FINDINGS: Liver: Liver is diffusely increased in echogenicity. No focal hepatic abnormality seen. Prominent siz e. Gallbladder: Normal pressure gallbladder. Biliary ducts: Intrahepatic bile ducts are non-dilated. Extrahepatic bile duct caliber measures 6.0 mm. Normal is 6-7 mm or less in diameter, or 10 mm or less post-cholecystectomy. Pancreas: Visualized portions of the pancreas are sonographically normal. Spleen: Spleen is normal in size and homogeneous in echotexture. Kidneys: 9 mm nonobstructing right renal calcification; otherwise grossly normal appearance of the r ight kidney measuring 12.2 cm in length. Left kidney not examined on the current exam. IMPRESSION: Increased hepatic echogenicity suggesting hepatic steatosis. Correlate clinically. 9 mm nonobstructing right renal calcification. Reviewed by: STEPHANIE Weiner on 11/23/2020 2:16 PM PDT Approved by: Lele Luna MD on 11/23/2020 2:16 PM PDT Station ID: [id number]
--- NOTE | 2020-11-23 15:40 | Ultrasound Report ---
PROCEDURE: Retroperitoneal INDICATIONS: HYDRONEPHROSIS, ELEVATED LIVER ENZYMES TECHNIQUE: Real-time scanning was performed of the kidneys and bladder, with image documentation. COMPARISON: 12/28/2018 FINDINGS: Kidneys: Right kidney measures 12.2 cm long; left kidney measures 1.0 cm long. Right renal cortical thickness is 12.2 cm; left renal cortical thickness is 1.0 cm. Renal cortical echotexture appears w ithin normal limits with preserved cortical medullary differentiation. There is no hydronephrosis. Th ere is an echogenic focus measuring up to 0.9 cm within the superior pole of the right kidney with as sociated twinkle artifact likely representing a renal stone. There are 3 small echogenic foci within the inferior pole the left kidney with associated artifact suggestive of small renal stones. These me asure up to 0.9 cm, 0.8 cm, and 0.7 cm. Bladder: Pre-void bladder volume is 132 mL. No postvoid residual volume. Pre-void images demonstrate no intraluminal masses or stones. On pre-void images, the left ureteral jet was noted with color Do ppler interrogation. (Of note, ureteral jets may not be detectable in up to 25% of cases due to insu fficient differences in specific gravity between ureteral and bladder urine). Miscellaneous: No free pelvic fluid. IMPRESSION: 1. No evidence of hydronephrosis. 2. Bilateral renal cortical thinning. 3. Bilateral echogenic foci in the kidney suggestive of nonobstructing renal stones. Reviewed by: Lauro Livingston MD on 11/23/2020 3:39 PM PDT Approved by: Lauro Livingston MD on 11/23/2020 3:39 PM PDT Station ID: [id number]
== END 2020-11-23 07:21 | disposition home or self-care (01) ==
LOC: DI 07:20
PROVIDERS: ATTEND Family Medicine
DX: N20.0 Calculus of kidney (principal); R74.8 Abnormal levels of other serum enzymes

== ENCOUNTER 2021-01-09 12:01 | Outpatient (CLI) | payer MEDICARE, OTHER ==
--- NOTE | 2021-01-09 12:51 | XRAY Report ---
PROCEDURE: Abdomen 1 View X-Ray INDICATIONS: RIGHT LEFT KIDNEY STONES TECHNIQUE: 1 view of the abdomen were acquired. COMPARISON: Ultrasound dated 11/23/2020 FINDINGS: Surgical changes and devices: None. Bowel: No pneumoperitoneum. The bowel gas pattern is normal. 5 mm calcification projects in the region of the left kidney. There is a 1 mm calcification seen in t he region of the inferior pole the right kidney Bones: No suspicious bony abnormalities. IMPRESSION: Bilateral abdominal calcifications possibly urolithiasis although technically indeterminate. This cou ld be confirmed with CT KUB as clinically necessary. Reviewed by: Satnam Stacy MD on 01/09/2021 12:49 PM PDT Approved by: Satnam Stacy MD on 01/09/2021 12:49 PM PDT Station ID: [id number]
== END 2021-01-09 12:02 | disposition home or self-care (01) ==
LOC: DI.S 12:01
PROVIDERS: ATTEND Family Medicine
DX: N20.0 Calculus of kidney (principal)

== ENCOUNTER 2021-02-28 22:07 | Emergency (ER) | payer MEDICARE, OTHER ==
--- NOTE | 2021-02-28 22:32 | ED Physician Documentation ---
History of Present Illness - Stated complaint Stated Complaint: FAST HEART - Chief complaint Chief Complaint: Cardiac - History obtained from History obtained from: Patient - History of Present Illness Timing: Enter time (15:00) Pain level max: 0 Pain level now: 0 Improved by: nothing Associated symptoms: rest - Additonal information Additional information: sudden onset of rapid palpitations at approximately 3 PM while at home at rest. 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 Patient has been told by her phlebotomy program coordinator that she can try various methods of valsalva, extra dose of medication, relaxation, etc. but that if symptoms persist after 8 hours, she should go to ED. She says heart rate was 170s at onset, took extra dose of metoprolol and this reduced rate to 150s/140s. She has mild nausea without vomiting. denies chest pain Review of Systems Cardiac: reports: Palpitations. denies: Chest pain / pressure, Pedal edema, Calf pain Respiratory: reports: Reviewed and negative GI: reports: Reviewed and negative : reports: Reviewed and negative Neurologic: reports: Reviewed and negative PD PAST MEDICAL HISTORY - Past Medical History Cardiovascular: Hypertension, Arrhythmia Respiratory: None, Other Neuro: None Endocrine/Autoimmune: None GI: None : Kidney stones HEENT: None Psych: None Musculoskeletal: None Derm: None, Other - Past Surgical History Past Surgical History: Yes /MEDICAL RECORDS COORDINATOR: section, Hysterectomy HEENT: Tonsil/Adenoidectomy Derm: Skin cancer surgery - Present Medications Home Medications: Ambulatory Orders Medication Instructions Recorded Confirmed hydroCHLOROthiazide 25 mg PO DAILY 04/19/17 03/01/21 [Hydrochlorothiazide] Metoprolol Succinate 25 mg PO BID 04/21/17 03/01/21 Valacyclovir HCl [Valacyclovir] 500 mg PO DAILY 04/21/17 03/01/21 Aspirin [Aspirin EC] 81 mg PO DAILY 03/01/21 03/01/21 Cyclobenzaprine [Flexeril] 10 mg PO PRN PRN 03/01/21 03/01/21 Levothyroxine [Synthroid] 25 mcg PO QDAC 03/01/21 03/01/21 - Allergies Allergies/Adverse Reactions: Allergies Allergy/AdvReac Type Severity Reaction Status Date / Time Sulfa (Sulfonamide Allergy Emesis Verified 02/28/21 22:21 Antibiotics) Penicillins AdvReac Emesis Verified 02/28/21 22:21 [place] AdvReac Emesis Uncoded 03/08/19 00:22 - Social History Does the pt smoke?: No Smoking Status: Never smoker Does the pt drink ETOH?: Yes Does the pt have substance abuse?: No - Immunizations Immunizations are current?: No Immunizations: TDAP >10years/unknown - POLST Patient has POLST: No PD ED PE NORMAL - Vitals Vital signs reviewed: Yes - General General: Alert and oriented X 3, No acute distress, Well developed/nourished - HEENT HEENT: Moist mucous membranes - Neck Neck: Supple, no meningeal sign - Cardiac Cardiac: No murmur, No gallop, No rub - Respiratory Respiratory: No respiratory distress, Clear bilaterally - Abdomen Abdomen: Soft, Non tender - Derm Derm: Normal color, Warm and dry - Extremities Extremities: No edema - Neuro Neuro: Alert and oriented X 3 PD ED PE EXPANDED - Cardiac Cardiac: Tachy, Regular Rhythm Results - Vitals Vitals: Oxygen O2 Source Room air - EKG (time done) No standard instances Rate: Rate (enter#) (144) Rhythm: Sinus tachycardia (junctional) [place]: Normal Intervals: Normal [place] QRS: Normal Ischemia: Normal ST segments #2 Rate: Rate (enter#) (71) Rhythm: NSR [place]: Normal Intervals: Normal [place] QRS: Normal Ischemia: Normal ST segments - Labs Labs: Laboratory Tests 02/28/21 02/28/21 02/28/21 22:43 22:43 22:43 WBC 12.1 H RBC 4.93 Hgb 16.4 H Hct 46.6 MCV 94.5 MCH 33.3 H MCHC 35.2 RDW 12.7 Plt Count 278 MPV 9.6 Neut # (Auto) 7.4 H Lymph # (Auto) 3.6 H Burt # (Auto) 0.7 Eos # (Auto) 0.3 Baso # (Auto) 0.1 Absolute Nucleated RBC 0.00 Nucleated RBC % 0.0 Sodium 139 Potassium 3.6 Chloride 101 Carbon Dioxide 26 Anion Gap 12.0 BUN 21 H Creatinine 0.8 Estimated GFR (MDRD) 71 L Glucose 159 H Calcium 9.8 Total Bilirubin 0.8 AST 88 H ALT 93 H Alkaline Phosphatase 65 Troponin I High Sens 92.8 H* Total Protein 7.1 Albumin 3.9 Globulin 3.2 Albumin/Globulin Ratio 1.2 Lipase 23 Procedures - Cardioversion Attempt 1 Indication: Tachyarrhythmia Risks, benefits, alternatives explained to: Pt Prep: IV, O2, cardiac monitor technician, Pulse ox, Airway equip Meds: Adenocard ((adenosine)), Versed Post cardioversion rhythm: NSR Performed by: ED MD MEDICAL DECISION MAKING - ED course Complexity details: reviewed old records, reviewed results, re-evaluated patient, considered differential, d/w patient ED course: patient converted to NSR with 6 mg IV adenosine (pretreated with 1mg versed due to anxiety, as with previous visit). conversion resulted in symptom resolution. No concerning findings on post-coversion EKG and asymptomatic including no chest pain. She has an elevated high sensitivity troponin (over 90) and thus I spoke to Dr. Schuster (phlebotomy program coordinator covering for patients phlebotomy program coordinator at [facility]). They recommend d/c home despit this troponin provided no concerning findings on EKG to suggest acute ischemia or infarct and no symptoms to suggest angina Departure - Departure Disposition: 01 Home, Self Care Clinical Impression: SVT (supraventricular tachycardia) Condition: Good Instructions: ED Tachycardia Pat PSVT Comments: As we discussed, you had an abnormal (elevated) high sensitivity troponin (cardiac enzyme test); the result was 92.8, which is quite elevated. However, your EKG does not show any evidence of injury to the heart and thus you can be discharged at this time. You will need close follow up regarding your ongoing SVT as well as the abnormal cardiac blood test. Discharge Date/Time: 03/01/21 01:29
[2021-02-28 22:47] LABS: BASOPHILS # (AUTO) 0.1 10^3/uL (0.0-0.1); BASOPHILS % (AUTO) 0.5 %; EOSINOPHILS # (AUTO) 0.3 10^3/uL (0.0-0.7); EOSINOPHILS % (AUTO) 2.3 %; HCT - HEMATOCRIT 46.6 % (37.0-47.0); HGB - HEMOGLOBIN 16.4 g/dL (12.0-16.0); LYMPHOCYTES # (AUTO) 3.6 10^3/uL (1.5-3.5); LYMPHOCYTES % (AUTO) 29.7 %; MEAN CORPUSCULAR HEMOGLOBIN 33.3 pg (27.0-31.0); MEAN CORPUSCULAR HGB CONC 35.2 g/dL (32.0-36.0); MEAN CORPUSCULAR VOLUME 94.5 fL (81.0-99.0); MEAN PLATELET VOLUME 9.6 fL (7.9-10.8); MONOCYTES # (AUTO) 0.7 10^3/uL (0.0-1.0); MONOCYTES % (AUTO) 5.9 %; NEUTROPHILS # (AUTO) 7.4 10^3/uL (1.5-6.6); NEUTROPHILS % (AUTO) 61.3 %; PLT - PLATELET COUNT 278 10^3/uL (130-450); RED BLOOD COUNT 4.93 10^6/uL (4.20-5.40); RED CELL DISTRIBUTION WIDTH 12.7 % (12.0-15.0); WHITE BLOOD COUNT 12.1 x10^3/uL (4.8-10.8)
[2021-02-28 23:10] LABS: ALBUMIN 3.9 g/dL (3.2-5.5); ALBUMIN/GLOBULIN RATIO 1.2 (1.0-2.2); BILIRUBIN,TOTAL 0.8 mg/dL (0.2-1.0); CALCIUM 9.8 mg/dL (8.5-10.3); CREATININE 0.8 mg/dL (0.4-1.0); POTASSIUM 3.6 mmol/L (3.5-5.0); TOTAL PROTEIN 7.1 g/dL (6.7-8.2)
[2021-02-28] MEDS ORDERED: MIDAZOLAM 2 MG/2 ML VIAL IVP STA (23:15)
[2021-02-28] MEDS ORDERED: ADENOSINE 6 MG/2 ML VIAL IVP STA (23:16)
[2021-03-01 00:35] VITALS: BP 126/76
== END 2021-03-01 01:29 | disposition home or self-care (01) ==
LOC: ED 22:07
DX: I47.1 Supraventricular tachycardia (principal); F41.9 Anxiety disorder, unspecified; I10 Essential (primary) hypertension
CPT/HCPCS: 36415; 80053; 83690; 84484; 85025; 93005; 96374; 96375; 99284; J0153

== ENCOUNTER 2023-12-22 13:34 | Outpatient (CLI) | payer MEDICARE, OTHER ==
--- NOTE | 2023-12-22 15:29 | Ultrasound Report ---
Renal (Retroperitoneal) HISTORY: NEPHROLITHIASIS COMPARISON: 11/23/2020 TECHNIQUE: Ultrasound of the kidneys was performed. FINDINGS: Right Kidney: 11.7 cm in length with 1.0 cm cortical thickness. 1.0 cm simple cyst in the upper pole . Normal echogenicity. No hydronephrosis or renal stone. Left Kidney: 11.6 cm in length with 1.0 cm cortical thickness. 2.0 x 1.5 x 1.9 cm hyperechoic lesion in the lower pole, new from prior exam. 2.3 cm simple cyst in the inferior pole. Normal echogenicity. No renal stone. Mild left pelviectasis. Urinary Bladder:Prevoid volume of 347 cc. No post void residual. Bilateral ureter jets are noted. Additional Findings: IMPRESSION: 1.No renal stone either kidney. Mild left pelviectasis. 2.2.9 cm hyperechoic lesion in the left kidney, new from prior exam. 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 Recommend further evaluation with CT abdomen pelvis. Reviewed by: Lisa Burgess MD on 12/22/2023 3:27 PM PDT Approved by: Lisa Burgess MD on 12/22/2023 3:27 PM PDT Station ID: [id number]
== END 2023-12-22 13:35 | disposition home or self-care (01) ==
LOC: DI 13:34
PROVIDERS: ATTEND Family Medicine
DX: N28.9 Disorder of kidney and ureter, unspecified (principal); N28.1 Cyst of kidney, acquired; N28.89 Other specified disorders of kidney and ureter